=== PATIENT | male | born 1975 | race Caucasian/White ===

== ENCOUNTER 2018-02-21 13:57 | Inpatient (IN) ==
[2018-02-21 14:22] LABS: Bilirubin,Urine Negative (Negative); Blood,Urine Negative (Negative); Clarity,Urine Cloudy (Clear); Color,Urine Dark Yellow (Yellow); Glucose,Urine (UA) Normal (Normal); Ketones,Urine Trace mg/dL (Negative); Leukocyte Esterase,Urine Negative (Negative); Nitrite,Urine Negative (Negative); Protein,Urine Trace mg/dL (Neg-Trace); Specific Gravity,Urine 1.028 (1.010-1.025); Urobilinogen,Urine Normal (Normal)
[2018-02-21 14:24] LABS: Hyaline Casts,Urine None Seen per lpf (None-Few); RBC,Urine 0-3 per hpf (0-3)
[2018-02-21 14:35] LABS: Squamous Epithelial Cell,Urine Few per lpf (None-Few)
[2018-02-21 14:36] LABS: Basophils # 0.1 K/mcL (0.0-0.2); Basophils % 0.7 %; Hematocrit 45.6 % (37.5-50.1); Immature Granulocytes % 0.2 % (0-4); Lymphocytes # 2.6 K/mcL (0.6-4.6); Lymphocytes % 26.4 %; Mean Corpuscular HGB Conc 35.1 g/dL (31.6-35.5); Mean Corpuscular Hemoglobin 30.5 pg (28.0-33.3); Mean Platelet Volume 9.8 fL (9.4-12.4); Monocytes # 0.6 K/mcL (0.0-1.3); Monocytes % 5.6 %; Neutrophils # 6.7 K/mcL (1.6-8.9); Platelet Count 211 K/mcL (140-400); Red Blood Count 5.24 M/mcL (4.19-5.50); Red Cell Distribution Width 12.8 % (11.5-14.5); Segmented Neutrophils % 67.1 %
[2018-02-21 14:36] LABS: Bacteria,Urine Moderate per hpf (None-Few); WBC,Urine 0-3 per hpf (0-3)
--- NOTE | 2018-02-21 14:39 | Emergency Department Note ---
Disposition Clinical Impression: Suicidal ideation Disposition: Admitted As Inpatient Condition: Good General Adult HPI - General Chief complaint: ED Psychiatric Symptoms Stated complaint: SI,Hallucinations Time Seen by Provider: 02/21/18 14:32 Source: patient Limitations: no limitations - History of Present Illness Pain Scale: 0 - Related Data Home Medications Medication Instructions Recorded Confirmed Escitalopram [Lexapro] 10 mg PO DAILY 02/21/18 02/21/18 Naltrexone HCl 25 - 50 mg PO DAILY 02/21/18 02/21/18 Allergies Allergy/AdvReac Type Severity Reaction Status Date / Time No Known Allergies Allergy Verified 02/21/18 14:04 Past Medical History - Past Medical History Medical history: Reports: no medical history Psychiatric history: Reports: anxiety, bipolar, depression, schizophrenia, previous psychiatric hospitalization - Social History Smoking Status: Current every day smoker Smokeless Tobacco Status: No Alcohol use: Reports: none Drug use: Reports: none Physical Exam - General Limitations: no limitations General appearance: alert, in no apparent distress Course Vital Signs Temperature 97.6 F 02/21/18 14:01 Pulse Rate 119 02/21/18 14:01 Respiratory Rate 16 02/21/18 14:01 Blood Pressure 133/73 02/21/18 14:01 O2 Sat by Pulse Oximetry 99 02/21/18 14:01 Temperature 97.6 F 02/21/18 14:01 Pulse Rate 119 02/21/18 14:01 Respiratory Rate 16 02/21/18 14:01 Blood Pressure 133/73 02/21/18 14:01 O2 Sat by Pulse Oximetry 99 02/21/18 14:01 Oxygen Delivery Oxygen Delivery Room Air Medical Decision Making - Lab Data Result diagrams: 02/21/18 14:12 02/21/18 14:12 Lab Results 02/21/18 02/21/18 02/21/18 Range/Units 14:10 14:10 14:12 WBC 10.0 (4.3-11.1) K/mcL RBC 5.24 (4.19-5.50) M/mcL Hgb 16.0 (12.9-16.9) g/dL Hct 45.6 (37.5-50.1) % MCV 87.0 (83.0-100.0) fL MCH 30.5 (28.0-33.3) pg MCHC 35.1 (31.6-35.5) g/dL RDW 12.8 (11.5-14.5) % Plt Count 211 (140-400) K/mcL MPV 9.8 (9.4-12.4) fL Immature Gran % 0.2 (0-4) % Seg Neutrophils % 67.1 % Lymphocytes % 26.4 % Monocytes % 5.6 % Eosinophils % 0.0 % Basophils % 0.7 % Neutrophils # 6.7 (1.6-8.9) K/mcL Lymphocytes # 2.6 (0.6-4.6) K/mcL Monocytes # 0.6 (0.0-1.3) K/mcL Eosinophils # 0.0 (0.0-0.6) K/mcL Basophils # 0.1 (0.0-0.2) K/mcL Sodium (136-145) mEq/L Potassium (3.5-5.1) mEq/L Chloride (98-107) mEq/L Carbon Dioxide (23-29) mEq/L BUN (6-20) mg/dL Creatinine (0.70-1.30) mg/dL Est GFR ( Amer) (> 60) Est GFR (Non-Af Amer) (> 60) BUN/Creatinine Ratio (6-26) Glucose (70-105) mg/dL Calculated Osmolality (280-300) Calcium (8.6-10.3) mg/dL Urine Color Dark Yellow (Yellow) Urine Clarity Cloudy A (Clear) Urine pH 6.0 (5.0-8.0) pH Units Ur Specific [place] 1.028 H (1.010-1.025) Urine Protein Trace (Neg-Trace) mg/dL Urine Glucose (UA) Normal (Normal) mg/dL Urine Ketones Trace H (Negative) mg/dL Urine Blood Negative (Negative) Urine Nitrite Negative (Negative) Urine Bilirubin Negative (Negative) Urine Urobilinogen Normal (Normal) mg/dL Ur Leukocyte Esterase Negative (Negative) Urine Microscopic RBC 0-3 (0-3) per hpf Urine Microscopic WBC 0-3 (0-3) per hpf Ur Squamous Epith Cells Few (None-Few) per lpf Urine Bacteria Moderate H (None-Few) per hpf Hyaline Casts None Seen (None-Few) per lpf Salicylates (15.0-30.0) mg/dL Urine Opiates Screen Negative (Rpwrhf=287) ng/mL Acetaminophen (10-20) mcg/mL Ur Barbiturates Screen Negative (Cqpwvd=042) ng/mL Ur Phencyclidine Scrn Negative (Cutoff=25) ng/mL Ur Amphetamines Screen Positive H (Jyrnib=7336) ng/mL U Benzodiazepines Scrn Positive H (Nvycgq=006) ng/mL Urine Cocaine Screen Negative (Cutoff= 300) ng/mL U Marijuana (THC) Screen Negative (Cutoff = 50) ng/mL Ethyl Alcohol (Less than 10) mg/dL 02/21/18 Range/Units 14:12 WBC (4.3-11.1) K/mcL RBC (4.19-5.50) M/mcL Hgb (12.9-16.9) g/dL Hct (37.5-50.1) % MCV (83.0-100.0) fL MCH (28.0-33.3) pg MCHC (31.6-35.5) g/dL RDW (11.5-14.5) % Plt Count (140-400) K/mcL MPV (9.4-12.4) fL Immature Gran % (0-4) % Seg Neutrophils % % Lymphocytes % % Monocytes % % Eosinophils % % Basophils % % Neutrophils # (1.6-8.9) K/mcL Lymphocytes # (0.6-4.6) K/mcL Monocytes # (0.0-1.3) K/mcL Eosinophils # (0.0-0.6) K/mcL Basophils # (0.0-0.2) K/mcL Sodium 137 (136-145) mEq/L Potassium 3.6 (3.5-5.1) mEq/L Chloride 107 (98-107) mEq/L Carbon Dioxide 29 (23-29) mEq/L BUN 22 H (6-20) mg/dL Creatinine 1.13 (0.70-1.30) mg/dL Est GFR ( Amer) > 60 (> 60) Est GFR (Non-Af Amer) > 60 (> 60) BUN/Creatinine Ratio 19 (6-26) Glucose 159 H (70-105) mg/dL Calculated Osmolality 291 (280-300) Calcium 9.7 (8.6-10.3) mg/dL Urine Color (Yellow) Urine Clarity (Clear) Urine pH (5.0-8.0) pH Units Ur Specific [place] (1.010-1.025) Urine Protein (Neg-Trace) mg/dL Urine Glucose (UA) (Normal) mg/dL Urine Ketones (Negative) mg/dL Urine Blood (Negative) Urine Nitrite (Negative) Urine Bilirubin (Negative) Urine Urobilinogen (Normal) mg/dL Ur Leukocyte Esterase (Negative) Urine Microscopic RBC (0-3) per hpf Urine Microscopic WBC (0-3) per hpf Ur Squamous Epith Cells (None-Few) per lpf Urine Bacteria (None-Few) per hpf Hyaline Casts (None-Few) per lpf Salicylates < 2.5 L (15.0-30.0) mg/dL Urine Opiates Screen (Tvpptb=404) ng/mL Acetaminophen < 10 L (10-20) mcg/mL Ur Barbiturates Screen (Usgoer=493) ng/mL Ur Phencyclidine Scrn (Cutoff=25) ng/mL Ur Amphetamines Screen (Rjtcch=8080) ng/mL U Benzodiazepines Scrn (Mexhgm=296) ng/mL Urine Cocaine Screen (Cutoff= 300) ng/mL U Marijuana (THC) Screen (Cutoff = 50) ng/mL Ethyl Alcohol < 10 (Less than 10) mg/dL Attestation Statement - Attestation Attestation: I examined this patient and my medical decision-making was reviewed with the Resident Physician. I agree with the documented findings, disposition and treatment plan as described except to the extent set forth below. [id number]-[id number] time provided Patient arrives complaining of suicidal ideation. He has a history of schizophrenia and opiate abuse. He also admits to methamphetamine use. He appears in no acute distress on exam. We will attempt to clear him medically for behavioral evaluation
[2018-02-21 14:42] LABS: Amphetamine Screen,Urine Positive ng/mL (Cutoff=1000); Barbiturate Screen,Urine Negative ng/mL (Cutoff=200); Benzodiazepines Screen,Urine Positive ng/mL (Cutoff=200); Cannabinoid Screen,Urine Negative ng/mL (Cutoff = 50); Cocaine Screen,Urine Negative ng/mL (Cutoff= 300); Opiate Screen,Urine Negative ng/mL (Cutoff=300); Phencyclidine Screen,Urine Negative ng/mL (Cutoff=25)
[2018-02-21 14:55] LABS: Acetaminophen < 10 mcg/mL (10-20); BUN/Creatinine Ratio 19 (6-26); Blood Urea Nitrogen 22 mg/dL (6-20); Calcium 9.7 mg/dL (8.6-10.3); Carbon Dioxide 29 mEq/L (23-29); Chloride 107 mEq/L (98-107); Ethanol < 10 mg/dL (Less than 10); Glucose 159 mg/dL (70-105); Osmolality,Calculated 291 (280-300); Potassium 3.6 mEq/L (3.5-5.1); Salicylate < 2.5 mg/dL (15.0-30.0); Sodium 137 mEq/L (136-145); eGFR For African Americans > 60 (> 60); eGFR For Non-African Americans > 60 (> 60)
--- NOTE | 2018-02-21 15:01 | Emergency Department Note ---
Disposition Clinical Impression: Suicidal ideation Disposition: Admitted As Inpatient Condition: Good Referrals: NONE,PCP [Primary Care Provider] - Lambert Newberry [Family Provider] - Forms: ED Satisfaction Letter Time of Disposition: 16:22 General Adult HPI - General Chief complaint: ED Psychiatric Symptoms Stated complaint: SI,Hallucinations Time Seen by Provider: 02/21/18 14:32 Source: patient Mode of arrival: ambulatory Limitations: no limitations Nursing Notes Reviewed: Yes Vital Signs Reviewed: Yes - History of Present Illness HPI Narrative: 42-year-old male with known history of schizophrenia presenting to the emergency department with chief complaint of suicidal ideation. Patient states he has not been able to take his medications and has had suicidal thoughts. Denies any specific plan. Denies homicidal ideation. Does disclose visual and auditory hallucinations. According to family member at bedside he does speak to people who are not present in the room. Patient states he used to be on psychiatric medications but can no longer take them because IV drug abuse. Patient does disclose IV heroin and methamphetamine use. Patient denies any other drug or alcohol intoxication. Denies any self-harm. Patient does say he has been admitted for this previously. Last admission was less than one year ago. Pain Scale: 0 - Related Data Allergies Allergy/AdvReac Type Severity Reaction Status Date / Time No Known Allergies Allergy Verified 02/21/18 14:04 All systems ED: reviewed and negative except as stated. Psychiatric: Reports: suicidal thoughts, auditory hallucinations, visual hallucinations Past Medical History - Past Medical History Attestation: Yes The following information was validated with the patient. Medical history: Reports: no medical history Psychiatric history: Reports: anxiety, bipolar, depression, schizophrenia, previous psychiatric hospitalization - Social History Smoking Status: Current every day smoker Smokeless Tobacco Status: No Alcohol use: Reports: none Drug use: Reports: none Physical Exam - General Limitations: no limitations General appearance: alert, in no apparent distress - Head Head exam: atraumatic, normocephalic, normal inspection - Eye Eye exam: Present: normal appearance. Absent: scleral icterus, conjunctival injection - ENT ENT exam: normal exam, mucous membranes moist - Neck Neck exam: Present: normal inspection, full ROM. Absent: tenderness, meningismus - Chest Chest inspection: Present: normal inspection, symmetric chest wall rise. Absent : tenderness, rash - Respiratory Respiratory exam: Present: normal lung sounds bilaterally. Absent: respiratory distress, wheezes - Cardiovascular Cardiovascular exam: Present: normal rhythm, tachycardia, normal heart sounds - Abdominal Exam Abdominal exam: Present: soft, Non-Tender. Absent: distention, guarding, rebound - Extremities Exam Extremities exam: Present: normal inspection, full ROM - Neurological Exam Neurological exam: Present: alert, oriented X3 - Psychiatric Psychiatric exam: Present: suicidal ideation - Skin Skin exam: Present: warm, intact Course Course Narrative: 42-year-old male presenting for suicidal ideation. Patient has no medical concerns or complaints. Physical exam benign. We will obtain basic laboratory analysis and urine analysis. We will then consult our psychiatric services 1A to determine patient's further disposition. Patient is alert and oriented 3 in the room with stable vital signs. He is mildly tachycardic but otherwise within normal limits. patient agrees with this plan. - Reevaluation(s) Reevaluation #1: 1A evaluate the patient and feels he meets criteria to be admitted at this time. We will admit the patient to psychiatric services. Dr. Crain accepts the patient at this time. Patient is alert and oriented 3 and room stable vital signs. Vital Signs Temperature 97.6 F 02/21/18 14:01 Pulse Rate 119 02/21/18 14:01 Respiratory Rate 16 02/21/18 14:01 Blood Pressure 133/73 02/21/18 14:01 O2 Sat by Pulse Oximetry 99 02/21/18 14:01 Temperature 97.6 F 02/21/18 14:01 Pulse Rate 119 02/21/18 14:01 Respiratory Rate 16 02/21/18 14:01 Blood Pressure 133/73 02/21/18 14:01 O2 Sat by Pulse Oximetry 99 02/21/18 14:01 Oxygen Delivery Oxygen Delivery Room Air Medical Decision Making - Lab Data Result diagrams: 02/21/18 14:12 02/21/18 14:12 Lab Results 02/21/18 02/21/18 02/21/18 Range/Units 14:10 14:10 14:12 WBC 10.0 (4.3-11.1) K/mcL RBC 5.24 (4.19-5.50) M/mcL Hgb 16.0 (12.9-16.9) g/dL Hct 45.6 (37.5-50.1) % MCV 87.0 (83.0-100.0) fL MCH 30.5 (28.0-33.3) pg MCHC 35.1 (31.6-35.5) g/dL RDW 12.8 (11.5-14.5) % Plt Count 211 (140-400) K/mcL MPV 9.8 (9.4-12.4) fL Immature Gran % 0.2 (0-4) % Seg Neutrophils % 67.1 % Lymphocytes % 26.4 % Monocytes % 5.6 % Eosinophils % 0.0 % Basophils % 0.7 % Neutrophils # 6.7 (1.6-8.9) K/mcL Lymphocytes # 2.6 (0.6-4.6) K/mcL Monocytes # 0.6 (0.0-1.3) K/mcL Eosinophils # 0.0 (0.0-0.6) K/mcL Basophils # 0.1 (0.0-0.2) K/mcL Sodium (136-145) mEq/L Potassium (3.5-5.1) mEq/L Chloride (98-107) mEq/L Carbon Dioxide (23-29) mEq/L BUN (6-20) mg/dL Creatinine (0.70-1.30) mg/dL Est GFR ( Amer) (> 60) Est GFR (Non-Af Amer) (> 60) BUN/Creatinine Ratio (6-26) Glucose (70-105) mg/dL Calculated Osmolality (280-300) Calcium (8.6-10.3) mg/dL Urine Color Dark Yellow (Yellow) Urine Clarity Cloudy A (Clear) Urine pH 6.0 (5.0-8.0) pH Units Ur Specific [place] 1.028 H (1.010-1.025) Urine Protein Trace (Neg-Trace) mg/dL Urine Glucose (UA) Normal (Normal) mg/dL Urine Ketones Trace H (Negative) mg/dL Urine Blood Negative (Negative) Urine Nitrite Negative (Negative) Urine Bilirubin Negative (Negative) Urine Urobilinogen Normal (Normal) mg/dL Ur Leukocyte Esterase Negative (Negative) Urine Microscopic RBC 0-3 (0-3) per hpf Urine Microscopic WBC 0-3 (0-3) per hpf Ur Squamous Epith Cells Few (None-Few) per lpf Urine Bacteria Moderate H (None-Few) per hpf Hyaline Casts None Seen (None-Few) per lpf Salicylates (15.0-30.0) mg/dL Urine Opiates Screen Negative (Qzdqyv=102) ng/mL Acetaminophen (10-20) mcg/mL Ur Barbiturates Screen Negative (Cutkrv=870) ng/mL Ur Phencyclidine Scrn Negative (Cutoff=25) ng/mL Ur Amphetamines Screen Positive H (Ykokpe=7338) ng/mL U Benzodiazepines Scrn Positive H (Gdbsbp=921) ng/mL Urine Cocaine Screen Negative (Cutoff= 300) ng/mL U Marijuana (THC) Screen Negative (Cutoff = 50) ng/mL Ethyl Alcohol (Less than 10) mg/dL 02/21/18 Range/Units 14:12 WBC (4.3-11.1) K/mcL RBC (4.19-5.50) M/mcL Hgb (12.9-16.9) g/dL Hct (37.5-50.1) % MCV (83.0-100.0) fL MCH (28.0-33.3) pg MCHC (31.6-35.5) g/dL RDW (11.5-14.5) % Plt Count (140-400) K/mcL MPV (9.4-12.4) fL Immature Gran % (0-4) % Seg Neutrophils % % Lymphocytes % % Monocytes % % Eosinophils % % Basophils % % Neutrophils # (1.6-8.9) K/mcL Lymphocytes # (0.6-4.6) K/mcL Monocytes # (0.0-1.3) K/mcL Eosinophils # (0.0-0.6) K/mcL Basophils # (0.0-0.2) K/mcL Sodium 137 (136-145) mEq/L Potassium 3.6 (3.5-5.1) mEq/L Chloride 107 (98-107) mEq/L Carbon Dioxide 29 (23-29) mEq/L BUN 22 H (6-20) mg/dL Creatinine 1.13 (0.70-1.30) mg/dL Est GFR ( Amer) > 60 (> 60) Est GFR (Non-Af Amer) > 60 (> 60) BUN/Creatinine Ratio 19 (6-26) Glucose 159 H (70-105) mg/dL Calculated Osmolality 291 (280-300) Calcium 9.7 (8.6-10.3) mg/dL Urine Color (Yellow) Urine Clarity (Clear) Urine pH (5.0-8.0) pH Units Ur Specific [place] (1.010-1.025) Urine Protein (Neg-Trace) mg/dL Urine Glucose (UA) (Normal) mg/dL Urine Ketones (Negative) mg/dL Urine Blood (Negative) Urine Nitrite (Negative) Urine Bilirubin (Negative) Urine Urobilinogen (Normal) mg/dL Ur Leukocyte Esterase (Negative) Urine Microscopic RBC (0-3) per hpf Urine Microscopic WBC (0-3) per hpf Ur Squamous Epith Cells (None-Few) per lpf Urine Bacteria (None-Few) per hpf Hyaline Casts (None-Few) per lpf Salicylates < 2.5 L (15.0-30.0) mg/dL Urine Opiates Screen (Iwukjc=699) ng/mL Acetaminophen < 10 L (10-20) mcg/mL Ur Barbiturates Screen (Hipngo=340) ng/mL Ur Phencyclidine Scrn (Cutoff=25) ng/mL Ur Amphetamines Screen (Zszkti=2435) ng/mL U Benzodiazepines Scrn (Jaeqih=762) ng/mL Urine Cocaine Screen (Cutoff= 300) ng/mL U Marijuana (THC) Screen (Cutoff = 50) ng/mL Ethyl Alcohol < 10 (Less than 10) mg/dL
[2018-02-21] MEDS ORDERED: Mag Hydrox/Al Hydrox/Simeth 30 ML UDC PO PRN (16:31)
[2018-02-21] MEDS ORDERED: hydrOXYzine pamoate 25 MG CAPSULE PO PRN (16:31)
[2018-02-21] MEDS ORDERED: Ibuprofen 400 MG TABLET PO PRN (16:31)
[2018-02-21] MEDS ORDERED: *HR* LORazepam 2 MG/ML VIAL IM PRN (16:31)
[2018-02-21] MEDS ORDERED: MOM Conc 10 ML UD.LIQ PO PRN (16:31)
[2018-02-21] MEDS ORDERED: Haloperidol Lactate 5 MG/ML VIAL IM PRN (16:31)
[2018-02-21] MEDS ORDERED: *HR* LORazepam 1 MG TABLET PO ONE (16:45)
[2018-02-21] MEDS: Nicotine 21 MG PATCH.TD24 TD SCH (17:54)
[2018-02-21] MEDS: traZODone 50 MG TABLET PO PRN (21:28)
[2018-02-21] MEDS: OLANZapine 5 MG TAB.RAPDIS PO SCH (21:28)
[2018-02-22] MEDS: Nicotine 21 MG PATCH.TD24 TD SCH (08:58)
--- NOTE | 2018-02-22 09:59 | Psychiatry History & Physical ---
Date of Encounter: 02/22/18 Time of Encounter: 09:05 History of Present Illness Patient Stated Chief Complaint: "I am hearing voices." Medicare Admission Attestation: For traditional Medicare patients the provided hospital inpatient services are reasonable and necessary and in the case of services not specified as inpatient -only under 42 CFR 419.22 (n), that they are appropriately provided as inpatient services in accordance 42 CFR 412.3. For Critical Access Hospital the patient may reasonably be expected to be discharged or transferred to a hospital within 96 hours after admission to the Critical Access Hospital. Admitted From: Emergency Dept History of Present Illness: Mr. Stein is a 42 year old male with a history of schizophrenia as well as substance abuse who presented to the hospital with paranoia, depression, suicidal ideations. He states he is hearing voices of people talking but cannot make out what they are saying. Patient states he is not hearing any command hallucinations but he does feel depressed and the voices are troublesome to him. He admits to drug use but states initially that he has not used drugs in over a month. He has been hospitalized before for schizophrenia and at one point was stable on Invega, Depakote, Wellbutrin. He reports that all these meds were stopped about 6 months ago. Urine drug screen was positive for both amphetamines and benzos. Patient denies grandiosity or decreased need for sleep but does state that he has had trouble sleeping possibly secondary to the paranoia and thinking people are watching him. Today he denies suicidal ideations. He lives with his uncle. Past Med Surg Social Fam HX - Past Medical History Medical history: no medical history - Past Psychiatric History Psychiatric history: Reports: schizophrenia, previous psychiatric hospitalization, other (Substance abuse) Past psychiatric history details: Patient has a history of outpatient psychiatric treatment but he has not seen his psychiatrist in over 6 months. He has admissions to [facility] at least one time. Possible other admissions the patient is a poor historian. He denies history of suicide attempts. Family psychiatric history: Yes Family Psychiatric History Details: Patient states his father may have mental health history but is not sure. Family History of Suicide: None - Past Surgical History Surgical History: no surgical history - Social History Smoking Status: Current every day smoker Smokeless Tobacco Status: No Alcohol use: none Drug use: none Medications & Allergies Escitalopram [Lexapro] 10 mg PO DAILY 02/21/18 [History] Naltrexone HCl 25 - 50 mg PO DAILY 02/21/18 [History] 3 Allergy/AdvReac Type Severity Reaction Status Date / Time No Known Allergies Allergy Verified 02/21/18 14:04 Review of Systems ROS limited: due to patient condition (Patient is currently psychotic. Review of systems is limited secondary to his mental status.) Psychiatric: Reports: depression, anxiety, abnormal sleep pattern, auditory hallucinations, difficulty concentrating, other (Paranoia) Exam - HEENT Head exam IM: Present: atraumatic Eye exam IM: Present: EOMI, normal appearance, PERRL ENT exam IM: Present: normal exam - Neurological Neurological exam: Present: CN II-XII intact - Respiratory Respiratory exam IM: Present: CTAB - GI/Abdominal GI/Abdominal exam IM: Present: normal bowel sounds, soft. Absent: tenderness - Extremities Extremities exam IM: Present: full ROM - Skin Skin exam IM: Present: dry, warm - Constitutional Vitals: Temp Pulse Resp BP Pulse Ox 98.2 F 100 18 100/77 98 02/21/18 21:00 02/21/18 21:00 02/21/18 21:00 02/21/18 21:00 02/21/18 21:00 General appearance: unkempt, average - Musculoskeletal Gait: normal Station: relaxed Strength & Tone: normal for patient - Psychiatric Patient Orientation: Yes Person, Yes Time, Yes Place Level of alertness: Alert Behavior: cooperative, guarded Eye Contact: Fleeting Contact Mood Description: Depressed Affect description: flat Speech Volume: Soft/Quiet Speech pattern: slowed, limited Language & Vocabulary: limited Thought Process: [place], Slowed Thinking Thought Content: No Suicidal ideation, No Homicidal ideation, No Overt delusions , Yes Paranoid delusion, Yes Thought insertion Perceptual Disturbances: Yes Reacting to internal stimuli, No Visual hallucinations Attention Span Ability: Capable of Focused Attention Memory Description: Immediate Intact, Recent Impaired, Remote Impaired Patient Reliability: Not Reliable Historian Fund of knowledge: Yes below average Intelligence Estimate: Average Judgment: Poor Insight: Minimal Results - Labs Labs: Laboratory Last Values WBC 10.0 K/mcL (4.3-11.1) 02/21/18 14:12 RBC 5.24 M/mcL (4.19-5.50) 02/21/18 14:12 Hgb 16.0 g/dL (12.9-16.9) 02/21/18 14:12 Hct 45.6 % (37.5-50.1) 02/21/18 14:12 MCV 87.0 fL (83.0-100.0) 02/21/18 14:12 MCH 30.5 pg (28.0-33.3) 02/21/18 14:12 MCHC 35.1 g/dL (31.6-35.5) 02/21/18 14:12 RDW 12.8 % (11.5-14.5) 02/21/18 14:12 Plt Count 211 K/mcL (140-400) 02/21/18 14:12 MPV 9.8 fL (9.4-12.4) 02/21/18 14: Immature Gran % 0.2 % (0-4) 02/21/18 14: Seg Neutrophils % 67.1 % 02/21/18 14:12 Lymphocytes % 26.4 % 02/21/18 14: Monocytes % 5.6 % 02/21/18 14: Eosinophils % 0.0 % 02/21/18 14: Basophils % 0.7 % 02/21/18 14:12 Neutrophils # 6.7 K/mcL (1.6-8.9) 02/21/18 14:12 Lymphocytes # 2.6 K/mcL (0.6-4.6) 02/21/18 14: Monocytes # 0.6 K/mcL (0.0-1.3) 02/21/18 14: Eosinophils # 0.0 K/mcL (0.0-0.6) 02/21/18 14: Basophils # 0.1 K/mcL (0.0-0.2) 02/21/18 14:12 Sodium 137 mEq/L (136-145) 02/21/18 14:12 Potassium 3.6 mEq/L (3.5-5.1) 02/21/18 14:12 Chloride 107 mEq/L (98-107) 02/21/18 14:12 Carbon Dioxide 29 mEq/L (23-29) 02/21/18 14:12 BUN 22 mg/dL (6-20) H 02/21/18 14:12 Creatinine 1.13 mg/dL (0.70-1.30) 02/21/18 14:12 Est GFR ( Amer) > 60 (> 60) 02/21/18 14:12 Est GFR (Non-Af Amer) > 60 (> 60) 02/21/18 14:12 BUN/Creatinine Ratio 19 (6-26) 02/21/18 14:12 Glucose 159 mg/dL (70-105) H 02/21/18 14:12 Calculated Osmolality 291 (280-300) 02/21/18 14:12 Calcium 9.7 mg/dL (8.6-10.3) 02/21/18 14:12 Urine Color Dark Yellow (Yellow) 02/21/18 14:10 Urine Clarity Cloudy (Clear) A 02/21/18 14:10 Urine pH 6.0 pH Units (5.0-8.0) 02/21/18 14:10 Ur Specific [place] 1.028 (1.010-1.025) H 02/21/18 14:10 Urine Protein Trace mg/dL (Neg-Trace) 02/21/18 14:10 Urine Glucose (UA) Normal mg/dL (Normal) 02/21/18 14:10 Urine Ketones Trace mg/dL (Negative) H 02/21/18 14:10 Urine Blood Negative (Negative) 02/21/18 14:10 Urine Nitrite Negative (Negative) 02/21/18 14:10 Urine Bilirubin Negative (Negative) 02/21/18 14:10 Urine Urobilinogen Normal mg/dL (Normal) 02/21/18 14:10 Ur Leukocyte Esterase Negative (Negative) 02/21/18 14:10 Urine Microscopic RBC 0-3 per hpf (0-3) 02/21/18 14:10 Urine Microscopic WBC 0-3 per hpf (0-3) 02/21/18 14:10 Ur Squamous Epith Cells Few per lpf (None-Few) 02/21/18 14:10 Urine Bacteria Moderate per hpf (None-Few) H 02/21/18 14:10 Hyaline Casts None Seen per lpf (None-Few) 02/21/18 14:10 Salicylates < 2.5 mg/dL (15.0-30.0) L 02/21/18 14:12 Urine Opiates Screen Negative ng/mL (Vebtqi=290) 02/21/18 14:10 Acetaminophen < 10 mcg/mL (10-20) L 02/21/18 14:12 Ur Barbiturates Screen Negative ng/mL (Rlaalp=447) 02/21/18 14:10 Ur Phencyclidine Scrn Negative ng/mL (Cutoff=25) 02/21/18 14:10 Ur Amphetamines Screen Positive ng/mL (Weewiu=3349) H 02/21/18 14:10 U Benzodiazepines Scrn Positive ng/mL (Ncqbqd=268) H 02/21/18 14:10 Urine Cocaine Screen Negative ng/mL (Cutoff= 300) 02/21/18 14:10 U Marijuana (THC) Screen Negative ng/mL (Cutoff = 50) 02/21/18 14:10 Ethyl Alcohol < 10 mg/dL (Less than 10) 02/21/18 14:12 Assessment and Plan (1) Schizophrenia Current visit: Yes Status: Acute Plan: Admit inpatient for safety and stabilization, Close observation, Suicide Precautions per unit protocol, Encourage participation in unit milieu, Group Therapy, Monitor sleep, Monitor appetite Additional Plan: Patient is presently psychotic and requires psychiatric stabilization. Start Zyprexa at bedtime. Encourage appropriate ADLs and group attendance as tolerated. When necessary Haldol as needed for severe agitation. Trazodone for sleep. Risks, benefits, side effects, alternatives discussed w/pt: Yes Patient agreeable to treatment: Yes Plans for Post Hospital Care: Home Estimated Length of Stay (Days): 3 Qualifiers: Schizophrenia type: paranoid schizophrenia Qualified Code(s): F20.0 - Paranoid schizophrenia (2) Methamphetamine abuse Current visit: Yes Status: Acute Plan: Admit inpatient for safety and stabilization Additional Plan: Patient is positive for methamphetamines and admits to using drugs. This may be exacerbating his mental health issues. Monitor closely and encourage positive coping strategies. Risks, benefits, side effects, alternatives discussed w/pt: Yes Patient agreeable to treatment: Yes (3) Benzodiazepine abuse Current visit: Yes Status: Acute Plan: Admit inpatient for safety and stabilization, Close observation, Suicide Precautions per unit protocol, Encourage participation in unit milieu, Group Therapy, Monitor sleep, Monitor appetite Additional Plan: Monitor vitals. It is unclear how much of the benzos patient was taking. We will hold on starting of benzo taper and watch patient closely. We can start Valium in a low dosage and tapering down if necessary. Encouraged patient to discontinue drug use. Risks, benefits, side effects, alternatives discussed w/pt: Yes Patient agreeable to treatment: Yes
[2018-02-22] MEDS: OLANZapine 5 MG TAB.RAPDIS PO SCH (20:46)
[2018-02-22] MEDS: traZODone 50 MG TABLET PO PRN (20:48)
--- NOTE | 2018-02-23 10:02 | Psychiatry Progress Note ---
Date of Encounter: 02/23/18 Time of Encounter: 09:30 Subjective Interval history: This patient met with me. His answers were brief without elaboration. At times I would ask him questions and he would pause or not seem to know the answer. He would indicate that this was in his record. He was somewhat irritable in his presentation especially when pressed on questions and answers. The patient admitted to methamphetamine abuse and benzodiazepine abuse history of heroin use. He was placed on naltrexone in an effort to be started on vivid trauma by his history. When asked about hallucinations he said he was not having any at the time but during the interview he briefly stopped stared at the floor and appeared to be attending to internal stimuli. The patient is able to identify that he was noncompliant with his treatment that he did not go for follow-up that he is previously been involved with NA. He believes that he can return to live with his uncle and help out in his uncle' s activities. The patient used to be at [facility] in [place] there is a report of a DUI in 2017 and hospitalization in [facility] for 5 days. The patient is not expecting any visitors today Review of Systems Psychiatric: Reports: depression, anxiety, abnormal sleep pattern, suicidal ideation, auditory hallucinations, memory loss, difficulty concentrating, irritability, other (Paranoia) Results - Vital Signs Vital Signs: Temp Pulse Resp BP Pulse Ox 97.4 F L 64 16 114/66 98 02/23/18 04:00 02/23/18 04:00 02/23/18 04:00 02/23/18 04:00 02/21/18 21:00 Assessment and Plan (1) Uncomplicated opioid dependence Current visit: Yes Status: Chronic Plan: Close observation, Suicide Precautions per unit protocol Risks, benefits , side effects, alternatives discussed w/pt: Yes Patient agreeable to treatment: Yes (add naltrexone) (2) Patient's noncompliance with other medical treatment and regimen Current visit: Yes Status: Acute Plan: Group Therapy, Monitor sleep, Family/Supportive other meeting Risks, benefits, side effects, alternatives discussed w/pt: Yes Patient agreeable to treatment: Yes (Invega sustenna) (3) Benzodiazepine abuse Current visit: Yes Status: Acute Plan: Continue hospitalization, Monitor sleep, Monitor appetite Risks, benefits, side effects, alternatives discussed w/pt: Yes Patient agreeable to treatment: Yes (4) Methamphetamine abuse Current visit: Yes Status: Acute Plan: Secure weapons, Family/Supportive other meeting Risks, benefits, side effects, alternatives discussed w/pt: Yes Patient agreeable to treatment: Yes (5) Schizophrenia Current visit: Yes Status: Acute Risks, benefits, side effects, alternatives discussed w/pt: Yes Patient agreeable to treatment: Yes (Invega 3 mg qhs) Qualifiers: Schizophrenia type: paranoid schizophrenia Qualified Code(s): F20.0 - Paranoid schizophrenia (6) Suicidal ideation Current visit: Yes Status: Acute Plan: Close observation, Suicide Precautions per unit protocol Risks, benefits , side effects, alternatives discussed w/pt: Yes Patient agreeable to treatment: Yes Consult Discharge Plan - Plan Referrals: [facility] [Outside] - 02/28/18 10:30 am (The above appointment is with Kaylyn Jacobo counselor at [facility]. Your first appointment will be very thorough and the total appointment time will take between two and three hours. You will be meeting with a counselor and a nurse, and developing a treatment plan. Please arrive one hour before your scheduled appointment to complete paperwork. You will receive follow- up appointments for on-going services, which could include community support, mental health and substance abuse counseling, groups/partial hospitalization programming, medication assisted treatment, and psychiatric medication management. Please bring the following with you to your first visit to the clinic: 1) proof of household income (two consecutive pay stubs, social security award letter, bank statement, statement letter from [facility], child support statement, IRS 1040 or W2 form, or a statement from the person who financially supports you stating they help provide for your basic needs), 2) proof of residency (drivers license, a piece of mail showing your address, a statement from person you live with verifying you live at their address), 3) your social security card, 4) photo ID, and 5) your insurance card (if you have commercial insurance you must call to obtain a prior authorization number before you arrive to your first appointment). If you do not bring these items, you will not be seen.) Laura Ro [Advanced Practice Nurse] - 03/04/18 3:30 pm (The above appointment is with Laura Ro CNP, at Primary Care within [facility]. This appointment is to establish you with a primary care provider. Your needs for medication and/or Vivitrol will be assessed and treated as indicated as well. Please arrive 15 minutes early to complete paperwork. Please bring your insurance card, photo ID and list of current medications to your first appointment. The above appointment(s) reflects first availability. You may contact the office regularly to check for cancellations that may allow you to be seen sooner.) Psychiatry Exam - Constitutional Vitals: Temp Pulse Resp BP Pulse Ox 97.4 F L 64 16 114/66 98 02/23/18 04:00 02/23/18 04:00 02/23/18 04:00 02/23/18 04:00 02/21/18 21:00 General appearance: age & developmentally appropriate, unkempt - Musculoskeletal Gait: slow Station: relaxed Strength & Tone: other - Psychiatric Patient Orientation: Yes Person, Yes Time, Yes Place, Yes Circumstance Level of alertness: Alert Behavior: guarded, suspicious Psychomotor activity: Abnormal movements Eye Contact: Minimal Contact Mood Description: Irritable Affect description: dysphoric Speech Volume: No variation in volume Speech pattern: normal rate Language & Vocabulary: consistent with education Thought Process: Evasive Thought Content: Yes Suicidal ideation Perceptual Disturbances: Yes Reacting to internal stimuli Memory Description: Immediate Intact, Recent Impaired, Remote Impaired Patient Reliability: Not Reliable Historian Fund of knowledge: Yes below average Intelligence Estimate: Average Judgment: Limited Insight: Minimal (has minor chewing movements and some lingual dyskinesia with activation, no nabeel mvoements seen)
[2018-02-23] MEDS: Nicotine 21 MG PATCH.TD24 TD SCH (10:13)
[2018-02-23] MEDS: OLANZapine 5 MG TAB.RAPDIS PO SCH (21:01)
[2018-02-24] MEDS: Nicotine 21 MG PATCH.TD24 TD SCH (09:00)
--- NOTE | 2018-02-24 12:04 | Psychiatry Progress Note ---
Date of Encounter: 02/24/18 Time of Encounter: 11:30 Subjective Interval history: The patient has adjusted to the unit. When asked what he thinks about he says that he is thinking of much of anything because he does not have much to do. When asked about what he would like to do after discharge she says he needs to go to counseling maintain his sobriety and he says he needs to see his police commanding officer on March 31. He had no visitors and reports that he would like to go back to his uncle's to live. The patient tolerated 3 mg of been vague he tolerated this today after this morning's dose. The patient has been on Invega Sustenna previously. The patient was agreeable to taking naltrexone when given a choice she elected to begin 25 mg. I warned him about being off Suboxone Subutex for 14 days and heroin and opiate pain pills for 8 days before taking the naltrexone. He was agreeable to this. The patient reports no hallucinations hearing voices and believing things are not true.. He did not appear to have significant disturbance of mood and overall his affect was restricted he noted no side effects to the current regimen of medicines but he noted that Vistaril and trazodone were not helpful for sleep as difficulty falling asleep and has taken trazodone previously agreed to a higher dose trazodone. This was ordered as a scheduled medicine Review of Systems Psychiatric: Reports: depression, anxiety, abnormal sleep pattern, suicidal ideation, auditory hallucinations, memory loss, difficulty concentrating, irritability, other (Paranoia) Results - Vital Signs Vital Signs: Temp Pulse Resp BP Pulse Ox 96.8 F L 75 16 114/80 98 02/24/18 09:00 02/24/18 09:00 02/24/18 09:00 02/24/18 09:00 02/21/18 21:00 Assessment and Plan (1) Uncomplicated opioid dependence Current visit: Yes Status: Chronic Plan: Continue hospitalization, Close observation, Suicide Precautions per unit protocol, Encourage participation in unit milieu, Monitor sleep Risks, benefits, side effects, alternatives discussed w/pt: Yes Patient agreeable to treatment: Yes (add naltrexone) (2) Patient's noncompliance with other medical treatment and regimen Current visit: Yes Status: Acute Plan: Continue hospitalization, Close observation, Monitor sleep Risks, benefits, side effects, alternatives discussed w/pt: Yes Patient agreeable to treatment: Yes (Invega sustenna) (3) Benzodiazepine abuse Current visit: Yes Status: Acute Plan: Continue hospitalization, Monitor appetite Risks, benefits, side effects , alternatives discussed w/pt: Yes Patient agreeable to treatment: Yes (4) Methamphetamine abuse Current visit: Yes Status: Acute Plan: Monitor sleep, Secure weapons, Family/Supportive other meeting Risks, benefits, side effects, alternatives discussed w/pt: Yes Patient agreeable to treatment: Yes (5) Schizophrenia Current visit: Yes Status: Acute Plan: Encourage participation in unit milieu, Group Therapy, Monitor sleep Risks, benefits, side effects, alternatives discussed w/pt: Yes Patient agreeable to treatment: Yes (Invega 3 mg qhs) Qualifiers: Schizophrenia type: paranoid schizophrenia Qualified Code(s): F20.0 - Paranoid schizophrenia (6) Suicidal ideation Current visit: Yes Status: Acute Plan: Continue hospitalization, Suicide Precautions per unit protocol, Encourage participation in unit milieu, Secure weapons Risks, benefits, side effects, alternatives discussed w/pt: Yes Patient agreeable to treatment: Yes Consult Discharge Plan - Plan Referrals: [facility] [Outside] - 02/28/18 10:30 am (The above appointment is with Kaylyn Jacobo, counselor at [facility]. Your first appointment will be very thorough and the total appointment time will take between two and three hours. You will be meeting with a counselor and a nurse, and developing a treatment plan. Please arrive one hour before your scheduled appointment to complete paperwork. You will receive follow- up appointments for on-going services, which could include community support, mental health and substance abuse counseling, groups/partial hospitalization programming, medication assisted treatment, and psychiatric medication management. Please bring the following with you to your first visit to the clinic: 1) proof of household income (two consecutive pay stubs, social security award letter, bank statement, statement letter from [facility], child support statement, IRS 1040 or W2 form, or a statement from the person who financially supports you stating they help provide for your basic needs), 2) proof of residency (drivers license, a piece of mail showing your address, a statement from person you live with verifying you live at their address), 3) your social security card, 4) photo ID, and 5) your insurance card (if you have commercial insurance you must call to obtain a prior authorization number before you arrive to your first appointment). If you do not bring these items, you will not be seen.) Laura Ro [Advanced Practice Nurse] - 03/04/18 3:30 pm (The above appointment is with Laura Ro CNP, at Primary [facility] within [facility]. This appointment is to establish you with a primary care provider. Your needs for medication and/or Vivitrol will be assessed and treated as indicated as well. Please arrive 15 minutes early to complete paperwork. Please bring your insurance card, photo ID and list of current medications to your first appointment. The above appointment(s) reflects first availability. You may contact the office regularly to check for cancellations that may allow you to be seen sooner.) Psychiatry Exam - Constitutional Vitals: Temp Pulse Resp BP Pulse Ox 96.8 F L 75 16 114/80 98 02/24/18 09:00 02/24/18 09:00 02/24/18 09:00 02/24/18 09:00 02/21/18 21:00 General appearance: age & developmentally appropriate, unkempt - Musculoskeletal Gait: normal Station: other Strength & Tone: normal for patient - Psychiatric Patient Orientation: Yes Person, Yes Time, Yes Place, Yes Circumstance Level of alertness: Alert Behavior: suspicious Psychomotor activity: Slowed Eye Contact: Maintains Eye Contact Mood Description: Depressed Affect description: congruent with mood Speech Volume: Normal Speech pattern: normal rate, normal rhythm Language & Vocabulary: consistent with education Thought Process: Evasive, Slowed Thinking Thought Content: Yes Suicidal ideation Perceptual Disturbances: Yes Reacting to internal stimuli Attention Span Ability: Capable of Focused Attention Memory Description: Grossly Intact Patient Reliability: Questionable Historian Fund of knowledge: Yes average Intelligence Estimate: Average Judgment: Limited Insight: Minimal
[2018-02-24] MEDS ORDERED: NALTREXONE PO SCH (21:00)
[2018-02-24] MEDS: traZODone 50 MG TABLET PO SCH (22:15)
[2018-02-24] MEDS: OLANZapine 5 MG TAB.RAPDIS PO SCH (22:15)
[2018-02-24] MEDS ORDERED: NALTREXONE HCL 50 MG TABLET PO SCH (23:45)
[2018-02-25] MEDS: NALTREXONE HCL 50 MG TABLET PO SCH ×2 (03:53→21:09)
[2018-02-25] MEDS: Nicotine 21 MG PATCH.TD24 TD SCH (08:35)
--- NOTE | 2018-02-25 10:58 | Psychiatry Progress Note ---
Date of Encounter: 02/25/18 Time of Encounter: 10:55 Subjective Interval history: Client reports he is feeling better. Now denying symptoms of Schizophrenia including paranoia and hallucinations. Also denying SI. No evidence of psychosis or major mood disturbance. Taking low dose Invega and Zyprexa. Unclear why he is on both. Previously took Invega Sustenna with good results. Would recommend he restart this medication and eliminate the oral meds. Since he is approaching discharge readiness this can be done on an outpatient basis. Client is saying he wants to return to live with his uncle. However, family seems to be unaware of his drug use. May need to secure other placement. Suspect client will be ready to go once housing is established. Review of Systems Constitutional: Denies: fever, chills, weakness, weight change Eyes: Denies: eye pain, vision change Ears, Nose, Throat: Denies: ear pain, throat pain, dental pain, hearing loss, congestion Cardiovascular: Denies: chest pain, palpitations, dyspnea on exertion Respiratory: Denies: cough, dyspnea, wheezes Gastrointestinal: Denies: abdominal pain, nausea, vomiting, diarrhea, constipation Musculoskeletal: Denies: joint swelling, joint pain Neurological: Denies: headache, weakness, numbness, memory loss Psychiatric: Reports: depression, anxiety, abnormal sleep pattern, suicidal ideation, auditory hallucinations, memory loss, difficulty concentrating, irritability, other (Paranoia) Results - Vital Signs Vital Signs: Temp Pulse Resp BP Pulse Ox 97.3 F L 73 16 100/71 98 02/25/18 09:00 02/25/18 09:00 02/25/18 09:00 02/25/18 09:00 02/21/18 21:00 Assessment and Plan (1) Schizophrenia Current visit: Yes Status: Acute Plan: Continue hospitalization, Close observation, Suicide Precautions per unit protocol, Encourage participation in unit milieu, Group Therapy, Monitor sleep, Monitor appetite Risks, benefits, side effects, alternatives discussed w/pt: Yes Patient agreeable to treatment: Yes (Invega 3 mg qhs) Qualifiers: Schizophrenia type: paranoid schizophrenia Qualified Code(s): F20.0 - Paranoid schizophrenia (2) Methamphetamine abuse Current visit: Yes Status: Acute Plan: Continue hospitalization, Close observation, Suicide Precautions per unit protocol, Encourage participation in unit milieu, Group Therapy, Monitor sleep, Monitor appetite Risks, benefits, side effects, alternatives discussed w/pt: Yes Patient agreeable to treatment: Yes Consult Discharge Plan - Plan Referrals: [facility] [Outside] - 02/28/18 10:30 am (The above appointment is with Kaylyn Jacobo, counselor at [facility]. Your first appointment will be very thorough and the total appointment time will take between two and three hours. You will be meeting with a counselor and a nurse, and developing a treatment plan. Please arrive one hour before your scheduled appointment to complete paperwork. You will receive follow- up appointments for on-going services, which could include community support, mental health and substance abuse counseling, groups/partial hospitalization programming, medication assisted treatment, and psychiatric medication management. Please bring the following with you to your first visit to the clinic: 1) proof of household income (two consecutive pay stubs, social security award letter, bank statement, statement letter from [facility], child support statement, IRS 1040 or W2 form, or a statement from the person who financially supports you stating they help provide for your basic needs), 2) proof of residency (drivers license, a piece of mail showing your address, a statement from person you live with verifying you live at their address), 3) your social security card, 4) photo ID, and 5) your insurance card (if you have commercial insurance you must call to obtain a prior authorization number before you arrive to your first appointment). If you do not bring these items, you will not be seen.) Laura Ro [Advanced Practice Nurse] - 03/04/18 3:30 pm (The above appointment is with Laura Ro CNP, at Primary Care within [facility]. This appointment is to establish you with a primary care provider. Your needs for medication and/or Vivitrol will be assessed and treated as indicated as well. Please arrive 15 minutes early to complete paperwork. Please bring your insurance card, photo ID and list of current medications to your first appointment. The above appointment(s) reflects first availability. You may contact the office regularly to check for cancellations that may allow you to be seen sooner.) Psychiatry Exam - Constitutional Vitals: Temp Pulse Resp BP Pulse Ox 97.3 F L 73 16 100/71 98 04/09/18 09:00 02/25/18 09:00 02/25/18 09:00 02/25/18 09:00 02/21/18 21:00 General appearance: age & developmentally appropriate - Musculoskeletal Gait: normal Station: relaxed Strength & Tone: normal for patient - Psychiatric Patient Orientation: Yes Person, Yes Time, Yes Place Level of alertness: Alert Behavior: calm, cooperative Psychomotor activity: Normal Eye Contact: Maintains Eye Contact Mood Description: Euthymic/stable Affect description: blunted Speech Volume: Normal Speech pattern: normal rate, normal rhythm, normal tone, fluent, spontaneous Language & Vocabulary: consistent with education Thought Process: Linear Thought Content: No Suicidal ideation, No Homicidal ideation, No Overt delusions Perceptual Disturbances: No Auditory hallucinations, No Visual hallucinations Attention Span Ability: Capable of Focused Attention Memory Description: Grossly Intact Patient Reliability: Questionable Historian Fund of knowledge: Yes abstraction ability, Yes aware of current events Intelligence Estimate: Average Judgment: Limited Insight: Partial
[2018-02-25] MEDS: OLANZapine 5 MG TAB.RAPDIS PO SCH (21:11)
[2018-02-25] MEDS: traZODone 50 MG TABLET PO SCH (21:11)
[2018-02-26] MEDS: Nicotine 21 MG PATCH.TD24 TD SCH (08:32)
[2018-02-26 10:38] VITALS: BP 109/74
--- NOTE | 2018-02-26 16:09 | Discharge Summary ---
Date of Encounter: 02/26/18 Time of Encounter: 16:04 Diagnosis - Discharge Diagnosis (1) Suicidal ideation Status: Acute (2) Schizophrenia Status: Acute Qualifiers: Schizophrenia type: paranoid schizophrenia Qualified Code(s): F20.0 - Paranoid schizophrenia Medications - Discharge Medications Prescriptions: OLANZapine [Zyprexa Zydis] 5 mg PO HS #30 tab.rapdis Paliperidone [Invega] 3 mg PO DAILY #30 tab.er.24 Escitalopram [Lexapro] 10 mg PO DAILY 02/21/18 [History] Naltrexone HCl 25 - 50 mg PO DAILY 02/21/18 [History] OLANZapine [Zyprexa Zydis] 5 mg PO HS #30 tab.rapdis 02/26/18 [Rx] Paliperidone [Invega] 3 mg PO DAILY #30 tab.er.24 02/26/18 [Rx] traZODone [TraZODone] 100 mg PO HS tablet 02/26/18 [Rx] 3 Allergy/AdvReac Type Severity Reaction Status Date / Time No Known Allergies Allergy Verified 02/21/18 14:04 Provider Date of admission: 02/21/18 16:24 Primary care physician: PCP NONE Discharging clinician: Franco Gold Psychiatry Exam - Constitutional Vitals: Temp Pulse Resp BP Pulse Ox 97.6 F 75 18 109/74 98 02/26/18 09:00 02/26/18 09:00 02/26/18 09:00 02/26/18 09:00 02/21/18 21:00 General appearance: age & developmentally appropriate, well-groomed, well- nourished - Musculoskeletal Gait: normal Station: relaxed Strength & Tone: normal for patient - Psychiatric Patient Orientation: Yes Person, Yes Time, Yes Place Level of alertness: Alert Behavior: calm, cooperative Psychomotor activity: Normal Eye Contact: Maintains Eye Contact Mood Description: Euthymic/stable Affect description: congruent with mood, full range Speech Volume: Normal Speech pattern: normal rate, normal rhythm, normal tone, fluent, spontaneous Language & Vocabulary: consistent with education Thought Process: Linear, Goal Oriented Thought Content: No Suicidal ideation, No Homicidal ideation, No Overt delusions Perceptual Disturbances: No Auditory hallucinations, No Visual hallucinations Attention Span Ability: Capable of Focused Attention Memory Description: Grossly Intact Patient Reliability: Reliable Historian Fund of knowledge: Yes abstraction ability, Yes aware of current events Intelligence Estimate: Average Judgment: Limited Insight: Partial Hospital Course Hospital course: Mr. Stein is a 42 year old male admitted for hallucination and suicidal ideation, his UDS was positive for methamphetamine. For details of the admission please see H&P On the unit's patient was treated with Invega and Zyprexa in addition to when necessary medication. He reported improved sleep and denied hallucinations suicidal ideation. On discharge he was medically stable discharge plans were completed patient is discharged in stable condition. - Time Spent with Patient Total time spent providing and/or coordinating discharge services: Less than 30 minutes Assessment and Plan - Patient/Caregiver Discharge Instructions Activity: resume usual activities as tolerated Diet: regular diet - Follow up Plan Follow up with: [facility] [Outside] - 02/28/18 10:00 am (The above appointment is with Kaylyn Jacobo, counselor at [facility]. [facility] will take you to and from this appointment. Your first appointment will be very thorough and the total appointment time will take between two and three hours. You will be meeting with a counselor and a nurse, and developing a treatment plan. You will receive follow- up appointments for on-going services, which could include community support, mental health and substance abuse counseling, groups/partial hospitalization programming, medication assisted treatment, and psychiatric medication management. Please bring the following with you to your first visit to the clinic: 1) proof of household income (two consecutive pay stubs, social security award letter, bank statement, statement letter from [facility], child support statement, IRS 1040 or W2 form, or a statement from the person who financially supports you stating they help provide for your basic needs), 2) proof of residency (drivers license, a piece of mail showing your address, a statement from person you live with verifying you live at their address), 3) your social security card, 4) photo ID, and 5) your insurance card (if you have commercial insurance you must call to obtain a prior authorization number before you arrive to your first appointment). If you do not bring these items, you will not be seen.) [facility] [Outside] - 02/28/18 2:30 pm (The above appointment is with Manuelito Kramer for Vivitrol, primary health care and medication management services. [facility] will take you to and from this appointment. ) Functional capacity at discharge: independent ambulation Overall status at discharge: Stable Disposition: Home, Self-Care Quality - Multiple Antipsychotics Patient discharged on 2 or more antipsychotic medications: No Procedures - Procedures Procedures: Medication Management, Crisis Stabilization, Supportive Therapy, Group Therapy, Psychoeducational Therapy
== END 2018-02-26 17:50 | disposition home or self-care (01) | DRG 750 ==
LOC: EMEROO 13:57 → 1ANU 16:24 → SUATTDRO 16:24 → 1ANU 16:58
PROVIDERS: ADMIT Student in an Organized Health Care Education/Training Program; ATTEND Psychiatry & Neurology Psychiatry

== ENCOUNTER 2018-05-20 11:24 | Inpatient (IN) ==
--- NOTE | 2018-05-20 11:53 | Emergency Department Note ---
Disposition Clinical Impression: Suicidal ideation, Medical clearance for psychiatric admission Disposition: Admitted As Inpatient Condition: Undetermined Referrals: NONE,PCP [Primary Care Provider] - Lambert Newberry [Family Provider] - Forms: ED Satisfaction Letter Time of Disposition: 15:06 Psych HPI - General Chief Complaint: ED Psychiatric Symptoms Stated Complaint: SI Time Seen by Provider: 05/20/18 11:37 Source: patient Mode of arrival: ambulatory Limitations: no limitations Nursing Notes Reviewed: Yes Vital Signs Reviewed: Yes - History of Present Illness HPI Narrative: 42-year-old male with history of psychiatric disorders, previous admissions, previous SI, history of IVDU, Monica the emergency department complaining of suicidal ideation. The patient states that he recently relapsed on IV drugs roughly 2 days ago and he is very depressed about it. The patient states that one day ago he was standing [place] the [place] [address] stating that he was going to jump off and kill himself. The patient states that at that time he decided that he wanted to come in for psychiatric evaluation today. Patient denies any drug use or alcohol use today. He denies any other medical problems other than the psychiatric disorders. He denies any auditory or visual hallucinations or homicidal ideations. - Related Data Home Medications Medication Instructions Recorded Confirmed Escitalopram [Lexapro] 10 mg PO DAILY 02/21/18 02/21/18 Naltrexone HCl 25 - 50 mg PO DAILY 02/21/18 02/21/18 Previous Rx's Medication Instructions Recorded OLANZapine [Zyprexa Zydis] 5 mg PO HS #30 tab.rapdis 02/26/18 Paliperidone [Invega] 3 mg PO DAILY #30 tab.er.24 02/26/18 traZODone [TraZODone] 100 mg PO HS tablet 02/26/18 Allergies Allergy/AdvReac Type Severity Reaction Status Date / Time No Known Allergies Allergy Verified 05/20/18 11:46 All systems ED: reviewed and negative except as stated. Constitutional: Denies: fever, chills, weakness ENT ED: Denies: congestion Cardiovascular: Denies: chest pain Respiratory: Denies: dyspnea Gastrointestinal: Denies: abdominal pain Musculoskeletal: Denies: back pain Integumentary: Denies: rash Neurological: Denies: headache Psychiatric: Reports: anxiety, depression, suicidal thoughts. Denies: homicidal thoughts, auditory hallucinations, visual hallucinations Past Medical History - Past Medical History Attestation: Yes The following information was validated with the patient. Source: patient Medical history: Reports: no medical history Surgical history: Reports: no surgical history Psychiatric history: Reports: schizophrenia, previous psychiatric hospitalization, other (Substance abuse) - Social History Smoking Status: Current every day smoker Smokeless Tobacco Status: No Alcohol use: Reports: none Drug use: Reports: IV Drug Use Physical Exam - General Limitations: no limitations General appearance: alert, in no apparent distress - Head Head exam: atraumatic, normocephalic, normal inspection - Eye Eye exam: Present: normal appearance, PERRL, EOMI - ENT ENT exam: normal exam, normal oropharynx, mucous membranes moist - Neck Neck exam: Present: normal inspection, full ROM, trachea midline - Chest Chest inspection: Present: normal inspection, symmetric chest wall rise - Respiratory Respiratory exam: Absent: respiratory distress - Cardiovascular Cardiovascular exam: Present: regular rate - Extremities Exam Extremities exam: Present: normal inspection, full ROM. Absent: tenderness, pedal edema - Neurological Exam Neurological exam: Present: alert, oriented X3 - Psychiatric Psychiatric exam: Present: depressed, suicidal ideation. Absent: agitated, anxious, flat affect, manic, homicidal ideation - Skin Skin exam: Present: warm, dry, intact, normal color Course - Consultations Consultation #1: 1A called and notified. Time: 13:45 Vital Signs Temperature 98.0 F 05/20/18 11:26 Pulse Rate 85 05/20/18 11:26 Respiratory Rate 18 05/20/18 11:26 Blood Pressure 107/75 05/20/18 11:26 O2 Sat by Pulse Oximetry 97 05/20/18 11:26 Temperature 98.0 F 05/20/18 11:58 Pulse Rate 85 05/20/18 11:58 Respiratory Rate 18 05/20/18 11:58 Blood Pressure 107/75 05/20/18 11:58 O2 Sat by Pulse Oximetry 97 05/20/18 11:58 Oxygen Delivery Oxygen Delivery Room Air Psych - MDM Narrative Medical decision making narrative: Patient's workup in the emergency department consistent with suicidal ideation. The patient will be accepted to [address] Rudd. - Lab Data Result diagrams: 05/20/18 12:39 05/20/18 12:39 Lab Results 05/20/18 05/20/18 05/20/18 Range/Units 10:45 11:56 12:39 WBC 9.3 (4.3-11.1) K/mcL RBC 4.87 (4.19-5.50) M/mcL Hgb 15.6 (12.9-16.9) g/dL Hct 43.6 (37.5-50.1) % MCV 89.5 (83.0-100.0) fL MCH 32.0 (28.0-33.3) pg MCHC 35.8 H (31.6-35.5) g/dL RDW 12.5 (11.5-14.5) % Plt Count 180 (140-400) K/mcL MPV 9.4 (9.4-12.4) fL Immature Gran % 0.1 (0-4) % Seg Neutrophils % 62.5 % Lymphocytes % 28.3 % Monocytes % 8.5 % Eosinophils % 0.0 % Basophils % 0.6 % Neutrophils # 5.8 (1.6-8.9) K/mcL Lymphocytes # 2.6 (0.6-4.6) K/mcL Monocytes # 0.8 (0.0-1.3) K/mcL Eosinophils # 0.0 (0.0-0.6) K/mcL Basophils # 0.1 (0.0-0.2) K/mcL Sodium (136-145) mEq/L Potassium (3.5-5.1) mEq/L Chloride (98-107) mEq/L Carbon Dioxide (23-29) mEq/L BUN (6-20) mg/dL Creatinine (0.70-1.30) mg/dL Est GFR ( Amer) (> 60) Est GFR (Non-Af Amer) (> 60) BUN/Creatinine Ratio (6-26) Glucose (70-105) mg/dL Calculated Osmolality (280-300) Calcium (8.6-10.3) mg/dL Ur Specimen Adequacy See below A Urine Color Dark Yellow (Yellow) Urine Clarity Clear (Clear) Urine pH 5.5 (5.0-8.0) pH Units Ur Specific [place] 1.030 H (1.010-1.025) Urine Protein 30 H (Neg-Trace) mg/dL Urine Glucose (UA) Normal (Normal) mg/dL Urine Ketones Negative (Negative) mg/dL Urine Blood Negative (Negative) Urine Nitrite Negative (Negative) Urine Bilirubin Negative (Negative) Urine Urobilinogen Normal (Normal) mg/dL Ur Leukocyte Esterase Negative (Negative) Urine Microscopic RBC 5-15 H (0-3) per hpf Urine Microscopic WBC 0-3 (0-3) per hpf Ur Squamous Epith Cells Moderate H (None-Few) per lpf Urine Bacteria None Seen (None-Few) per hpf Hyaline Casts None Seen (None-Few) per lpf Salicylates (15.0-30.0) mg/dL Urine Opiates Screen Positive H (Pbxngf=021) ng/mL Acetaminophen (10-20) mcg/mL Ur Barbiturates Screen Negative (Stjfch=123) ng/mL Ur Phencyclidine Scrn Negative (Cutoff=25) ng/mL Ur Amphetamines Screen Negative (Qumkpy=5204) ng/mL U Benzodiazepines Scrn Negative (Mgevmg=454) ng/mL Urine Cocaine Screen Positive H (Cutoff= 300) ng/mL U Marijuana (THC) Screen Negative (Cutoff = 50) ng/mL Ur Drug Screen Interp See Below Ethyl Alcohol (Less than 10) mg/dL 05/20/18 Range/Units 12:39 WBC (4.3-11.1) K/mcL RBC (4.19-5.50) M/mcL Hgb (12.9-16.9) g/dL Hct (37.5-50.1) % MCV (83.0-100.0) fL MCH (28.0-33.3) pg MCHC (31.6-35.5) g/dL RDW (11.5-14.5) % Plt Count (140-400) K/mcL MPV (9.4-12.4) fL Immature Gran % (0-4) % Seg Neutrophils % % Lymphocytes % % Monocytes % % Eosinophils % % Basophils % % Neutrophils # (1.6-8.9) K/mcL Lymphocytes # (0.6-4.6) K/mcL Monocytes # (0.0-1.3) K/mcL Eosinophils # (0.0-0.6) K/mcL Basophils # (0.0-0.2) K/mcL Sodium 139 (136-145) mEq/L Potassium 3.6 (3.5-5.1) mEq/L Chloride 106 (98-107) mEq/L Carbon Dioxide 29 (23-29) mEq/L BUN 12 (6-20) mg/dL Creatinine 1.02 (0.70-1.30) mg/dL Est GFR ( Amer) > 60 (> 60) Est GFR (Non-Af Amer) > 60 (> 60) BUN/Creatinine Ratio 12 (6-26) Glucose 83 (70-105) mg/dL Calculated Osmolality 287 (280-300) Calcium 9.3 (8.6-10.3) mg/dL Ur Specimen Adequacy Urine Color (Yellow) Urine Clarity (Clear) Urine pH (5.0-8.0) pH Units Ur Specific [place] (1.010-1.025) Urine Protein (Neg-Trace) mg/dL Urine Glucose (UA) (Normal) mg/dL Urine Ketones (Negative) mg/dL Urine Blood (Negative) Urine Nitrite (Negative) Urine Bilirubin (Negative) Urine Urobilinogen (Normal) mg/dL Ur Leukocyte Esterase (Negative) Urine Microscopic RBC (0-3) per hpf Urine Microscopic WBC (0-3) per hpf Ur Squamous Epith Cells (None-Few) per lpf Urine Bacteria (None-Few) per hpf Hyaline Casts (None-Few) per lpf Salicylates < 2.5 L (15.0-30.0) mg/dL Urine Opiates Screen (Lyqgrt=628) ng/mL Acetaminophen < 10 L (10-20) mcg/mL Ur Barbiturates Screen (Fozqbq=074) ng/mL Ur Phencyclidine Scrn (Cutoff=25) ng/mL Ur Amphetamines Screen (Raebiu=3306) ng/mL U Benzodiazepines Scrn (Mwkbpi=287) ng/mL Urine Cocaine Screen (Cutoff= 300) ng/mL U Marijuana (THC) Screen (Cutoff = 50) ng/mL Ur Drug Screen Interp Ethyl Alcohol < 10 (Less than 10) mg/dL Psychiatric Medical Clearance - Medical Clearance Checklist Medical History: No Social History Section defined Current Vitals: Last Vital Signs Temp 98.0 F 05/20/18 11:58 Pulse 85 05/20/18 11:58 Resp 18 05/20/18 11:58 BP 107/75 05/20/18 11:58 Pulse Ox 97 05/20/18 11:58 Psychiatric Lab Panel: Drug Levels and Toxicity 05/20/18 05/20/18 11:56 12:39 Urine Opiates Screen Positive H Acetaminophen < 10 L Ur Barbiturates Screen Negative Ur Phencyclidine Scrn Negative Ur Amphetamines Screen Negative U Benzodiazepines Scrn Negative Urine Cocaine Screen Positive H U Marijuana (THC) Screen Negative Ethyl Alcohol < 10 Abnormal Labs: Abnormal lab results MCHC 35.8 g/dL (31.6-35.5) H 05/20/18 12:39 Ur Specimen Adequacy See below A 05/20/18 10:45 Ur Specific [place] 1.030 (1.010-1.025) H 05/20/18 10:45 Urine Protein 30 mg/dL (Neg-Trace) H 05/20/18 10:45 Urine Microscopic RBC 5-15 per hpf (0-3) H 05/20/18 10:45 Ur Squamous Epith Cells Moderate per lpf (None-Few) H 05/20/18 10:45 Salicylates < 2.5 mg/dL (15.0-30.0) L 05/20/18 12:39 Urine Opiates Screen Positive ng/mL (Gabvqa=046) H 05/20/18 11:56 Acetaminophen < 10 mcg/mL (10-20) L 05/20/18 12:39 Urine Cocaine Screen Positive ng/mL (Cutoff= 300) H 05/20/18 11:56 Statement of Medical Clearance: I have evaluated the patient, reviewed diagnostic information, and certify that the patient's medical condition is sufficiently stable that transfer to the psychiatric unit does not pose a significant risk of deterioration.
[2018-05-20 12:09] LABS: Bilirubin,Urine Negative (Negative); Blood,Urine Negative (Negative); Clarity,Urine Clear (Clear); Color,Urine Dark Yellow (Yellow); Glucose,Urine (UA) Normal (Normal); Ketones,Urine Negative (Negative); Leukocyte Esterase,Urine Negative (Negative); Nitrite,Urine Negative (Negative); PH,Urine 5.5 pH Units (5.0-8.0); Protein,Urine 30 mg/dL (Neg-Trace); Urobilinogen,Urine Normal (Normal)
[2018-05-20 12:12] LABS: Bacteria,Urine None Seen per hpf (None-Few); Hyaline Casts,Urine None Seen per lpf (None-Few); Squamous Epithelial Cell,Urine Moderate per lpf (None-Few); WBC,Urine 0-3 per hpf (0-3)
[2018-05-20 12:48] LABS: Basophils # 0.1 K/mcL (0.0-0.2); Basophils % 0.6 %; Hematocrit 43.6 % (37.5-50.1); Hemoglobin 15.6 g/dL (12.9-16.9); Immature Granulocytes % 0.1 % (0-4); Lymphocytes # 2.6 K/mcL (0.6-4.6); Lymphocytes % 28.3 %; Mean Corpuscular HGB Conc 35.8 g/dL (31.6-35.5); Mean Corpuscular Volume 89.5 fL (83.0-100.0); Mean Platelet Volume 9.4 fL (9.4-12.4); Monocytes # 0.8 K/mcL (0.0-1.3); Monocytes % 8.5 %; Neutrophils # 5.8 K/mcL (1.6-8.9); Platelet Count 180 K/mcL (140-400); Red Blood Count 4.87 M/mcL (4.19-5.50); Red Cell Distribution Width 12.5 % (11.5-14.5); Segmented Neutrophils % 62.5 %
[2018-05-20 13:08] LABS: Acetaminophen < 10 mcg/mL (10-20); BUN/Creatinine Ratio 12 (6-26); Blood Urea Nitrogen 12 mg/dL (6-20); Calcium 9.3 mg/dL (8.6-10.3); Carbon Dioxide 29 mEq/L (23-29); Chloride 106 mEq/L (98-107); Ethanol < 10 mg/dL (Less than 10); Glucose 83 mg/dL (70-105); Osmolality,Calculated 287 (280-300); Potassium 3.6 mEq/L (3.5-5.1); Salicylate < 2.5 mg/dL (15.0-30.0); Sodium 139 mEq/L (136-145); eGFR For African Americans > 60 (> 60); eGFR For Non-African Americans > 60 (> 60)
--- NOTE | 2018-05-20 13:19 | Emergency Department Note ---
Disposition Clinical Impression: Suicidal ideation Disposition: Still a Patient Forms: ED Satisfaction Letter General Adult HPI - General Chief complaint: ED Psychiatric Symptoms Stated complaint: SI Time Seen by Provider: 05/20/18 11:37 Source: patient Mode of arrival: ambulatory Limitations: no limitations - History of Present Illness Pain Scale: 0 - Related Data Home Medications Medication Instructions Recorded Confirmed Escitalopram [Lexapro] 10 mg PO DAILY 02/21/18 02/21/18 Naltrexone HCl 25 - 50 mg PO DAILY 02/21/18 02/21/18 Previous Rx's Medication Instructions Recorded OLANZapine [Zyprexa Zydis] 5 mg PO HS #30 tab.rapdis 02/26/18 Paliperidone [Invega] 3 mg PO DAILY #30 tab.er.24 02/26/18 traZODone [TraZODone] 100 mg PO HS tablet 02/26/18 Allergies Allergy/AdvReac Type Severity Reaction Status Date / Time No Known Allergies Allergy Verified 05/20/18 11:46 Constitutional: Denies: fever, chills, weakness ENT ED: Denies: congestion Cardiovascular: Denies: chest pain Respiratory: Denies: dyspnea Gastrointestinal: Denies: abdominal pain Musculoskeletal: Denies: back pain Integumentary: Denies: rash Neurological: Denies: headache Psychiatric: Reports: anxiety, depression, suicidal thoughts. Denies: homicidal thoughts, auditory hallucinations, visual hallucinations Past Medical History - Past Medical History Medical history: Reports: no medical history Surgical history: Reports: no surgical history Psychiatric history: Reports: anxiety, bipolar, depression, schizophrenia, previous psychiatric hospitalization, other - Social History Smoking Status: Current every day smoker Smokeless Tobacco Status: No Alcohol use: Reports: occasionally Drug use: Reports: opiates, IV Drug Use Physical Exam - General Limitations: no limitations General appearance: alert, in no apparent distress Course Vital Signs Temperature 98.0 F 05/20/18 11:26 Pulse Rate 85 05/20/18 11:26 Respiratory Rate 18 05/20/18 11:26 Blood Pressure 107/75 05/20/18 11:26 O2 Sat by Pulse Oximetry 97 05/20/18 11:26 Temperature 98.0 F 05/20/18 11:58 Pulse Rate 85 05/20/18 11:58 Respiratory Rate 18 05/20/18 11:58 Blood Pressure 107/75 07/02/18 11:58 O2 Sat by Pulse Oximetry 97 05/20/18 11:58 Oxygen Delivery Oxygen Delivery Room Air Medical Decision Making - Lab Data Result diagrams: 05/20/18 12:39 05/20/18 12:39 Lab Results 05/20/18 05/20/18 05/20/18 Range/Units 10:45 11:56 12:39 WBC 9.3 (4.3-11.1) K/mcL RBC 4.87 (4.19-5.50) M/mcL Hgb 15.6 (12.9-16.9) g/dL Hct 43.6 (37.5-50.1) % MCV 89.5 (83.0-100.0) fL MCH 32.0 (28.0-33.3) pg MCHC 35.8 H (31.6-35.5) g/dL RDW 12.5 (11.5-14.5) % Plt Count 180 (140-400) K/mcL MPV 9.4 (9.4-12.4) fL Immature Gran % 0.1 (0-4) % Seg Neutrophils % 62.5 % Lymphocytes % 28.3 % Monocytes % 8.5 % Eosinophils % 0.0 % Basophils % 0.6 % Neutrophils # 5.8 (1.6-8.9) K/mcL Lymphocytes # 2.6 (0.6-4.6) K/mcL Monocytes # 0.8 (0.0-1.3) K/mcL Eosinophils # 0.0 (0.0-0.6) K/mcL Basophils # 0.1 (0.0-0.2) K/mcL Sodium (136-145) mEq/L Potassium (3.5-5.1) mEq/L Chloride (98-107) mEq/L Carbon Dioxide (23-29) mEq/L BUN (6-20) mg/dL Creatinine (0.70-1.30) mg/dL Est GFR ( Amer) (> 60) Est GFR (Non-Af Amer) (> 60) BUN/Creatinine Ratio (6-26) Glucose (70-105) mg/dL Calculated Osmolality (280-300) Calcium (8.6-10.3) mg/dL Ur Specimen Adequacy See below A Urine Color Dark Yellow (Yellow) Urine Clarity Clear (Clear) Urine pH 5.5 (5.0-8.0) pH Units Ur Specific [place] 1.030 H (1.010-1.025) Urine Protein 30 H (Neg-Trace) mg/dL Urine Glucose (UA) Normal (Normal) mg/dL Urine Ketones Negative (Negative) mg/dL Urine Blood Negative (Negative) Urine Nitrite Negative (Negative) Urine Bilirubin Negative (Negative) Urine Urobilinogen Normal (Normal) mg/dL Ur Leukocyte Esterase Negative (Negative) Urine Microscopic RBC 5-15 H (0-3) per hpf Urine Microscopic WBC 0-3 (0-3) per hpf Ur Squamous Epith Cells Moderate H (None-Few) per lpf Urine Bacteria None Seen (None-Few) per hpf Hyaline Casts None Seen (None-Few) per lpf Salicylates (15.0-30.0) mg/dL Acetaminophen (10-20) mcg/mL Ur Drug Screen Interp See Below Ethyl Alcohol (Less than 10) mg/dL 05/20/18 Range/Units 12:39 WBC (4.3-11.1) K/mcL RBC (4.19-5.50) M/mcL Hgb (12.9-16.9) g/dL Hct (37.5-50.1) % MCV (83.0-100.0) fL MCH (28.0-33.3) pg MCHC (31.6-35.5) g/dL RDW (11.5-14.5) % Plt Count (140-400) K/mcL MPV (9.4-12.4) fL Immature Gran % (0-4) % Seg Neutrophils % % Lymphocytes % % Monocytes % % Eosinophils % % Basophils % % Neutrophils # (1.6-8.9) K/mcL Lymphocytes # (0.6-4.6) K/mcL Monocytes # (0.0-1.3) K/mcL Eosinophils # (0.0-0.6) K/mcL Basophils # (0.0-0.2) K/mcL Sodium 139 (136-145) mEq/L Potassium 3.6 (3.5-5.1) mEq/L Chloride 106 (98-107) mEq/L Carbon Dioxide 29 (23-29) mEq/L BUN 12 (6-20) mg/dL Creatinine 1.02 (0.70-1.30) mg/dL Est GFR ( Amer) > 60 (> 60) Est GFR (Non-Af Amer) > 60 (> 60) BUN/Creatinine Ratio 12 (6-26) Glucose 83 (70-105) mg/dL Calculated Osmolality 287 (280-300) Calcium 9.3 (8.6-10.3) mg/dL Ur Specimen Adequacy Urine Color (Yellow) Urine Clarity (Clear) Urine pH (5.0-8.0) pH Units Ur Specific [place] (1.010-1.025) Urine Protein (Neg-Trace) mg/dL Urine Glucose (UA) (Normal) mg/dL Urine Ketones (Negative) mg/dL Urine Blood (Negative) Urine Nitrite (Negative) Urine Bilirubin (Negative) Urine Urobilinogen (Normal) mg/dL Ur Leukocyte Esterase (Negative) Urine Microscopic RBC (0-3) per hpf Urine Microscopic WBC (0-3) per hpf Ur Squamous Epith Cells (None-Few) per lpf Urine Bacteria (None-Few) per hpf Hyaline Casts (None-Few) per lpf Salicylates < 2.5 L (15.0-30.0) mg/dL Acetaminophen < 10 L (10-20) mcg/mL Ur Drug Screen Interp Ethyl Alcohol < 10 (Less than 10) mg/dL Attestation Statement - Attestation Attestation: I examined this patient and my medical decision-making was reviewed with the Resident Physician. I agree with the documented findings, disposition and treatment plan as described except to the extent set forth below. 42-year-old male presents emergency room for suicidal ideation. Patient states he wants to jump off a bridge and kill himself. He stood on the bridge on Sunday and thought about doing a but never did and was having thoughts of returning to the bridge today. He came to the ER for evaluation. He denies homicidal thoughts. We will do a psychiatric clearance and consult with our psychiatry team. I feel the patient needs to be admitted
[2018-05-20 13:41] LABS: Amphetamine Screen,Urine Negative ng/mL (Cutoff=1000); Barbiturate Screen,Urine Negative ng/mL (Cutoff=200); Benzodiazepines Screen,Urine Negative ng/mL (Cutoff=200); Cannabinoid Screen,Urine Negative ng/mL (Cutoff = 50); Cocaine Screen,Urine Positive ng/mL (Cutoff= 300); Opiate Screen,Urine Positive ng/mL (Cutoff=300); Phencyclidine Screen,Urine Negative ng/mL (Cutoff=25)
[2018-05-20] MEDS ORDERED: Ibuprofen 400 MG TABLET PO PRN (15:47)
[2018-05-20] MEDS ORDERED: *HR* LORazepam 1 MG TABLET PO PRN (15:47)
[2018-05-20] MEDS ORDERED: Haloperidol Lactate 5 MG/ML VIAL IM PRN (15:47)
[2018-05-20] MEDS ORDERED: *HR* LORazepam 2 MG/ML VIAL IM PRN (15:47)
[2018-05-20] MEDS ORDERED: hydrOXYzine pamoate 25 MG CAPSULE PO PRN (15:47)
[2018-05-20] MEDS ORDERED: MOM Conc 10 ML UD.LIQ PO PRN (15:47)
[2018-05-20] MEDS ORDERED: traZODone 50 MG TABLET PO PRN (15:47)
[2018-05-20] MEDS ORDERED: Mag Hydrox/Al Hydrox/Simeth 30 ML UDC PO PRN (15:47)
[2018-05-20] MEDS: Nicotine 14 MG PATCH.TD24 TD SCH (16:36)
[2018-05-20] MEDS: OLANZapine 5 MG TAB.RAPDIS PO SCH (20:37)
[2018-05-20] MEDS: traZODone 50 MG TABLET PO SCH (20:37)
[2018-05-21] MEDS: Nicotine 14 MG PATCH.TD24 TD SCH (08:28)
--- NOTE | 2018-05-21 14:03 | Psychiatry History & Physical ---
Date of Encounter: 05/21/18 Time of Encounter: 13:30 History of Present Illness Patient Stated Chief Complaint: I relapsed, i had sucidal ideation Medicare Admission Attestation: For traditional Medicare patients the provided hospital inpatient services are reasonable and necessary and in the case of services not specified as inpatient -only under 42 CFR 419.22 (n), that they are appropriately provided as inpatient services in accordance 42 CFR 412.3. For Critical Access Hospital the patient may reasonably be expected to be discharged or transferred to a hospital within 96 hours after admission to the Critical Access Hospital. Admitted From: Home Plans for Post Hospital Care: Transfer [facility] History of Present Illness: Mr. Stein is a 42 year old male The patient had a chief complaint of low mood and suicidal ideation. He resented to the emergency room History of present illness. The patient was previously hospitalized in previously seen by [facility]. The patient has both schizophrenia and substance abuse disorder. The patient had been on vivid trauma but get in his injections every month but nonetheless he was started drinking he relapsed to use cocaine he used opiates. These turned up in his urine. The patient had suicidal ideation he thought about killing himself he has no plans to kill himself in. 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 He says he has been working. The patient is under probation he has 300 days hanging over her head for violations of the terms of his probation. Past Med Surg Social Fam HX - Past Medical History Medical history: no medical history - Past Psychiatric History Psychiatric history: Reports: previous psychiatric hospitalization Family psychiatric history: Unknown Family History of Suicide: Unknown - Past Surgical History Surgical History: no surgical history - Social History Smoking Status: Current every day smoker Smokeless Tobacco Status: No Alcohol use: none Drug use: opiates, IV Drug Use Occupational status: previously employed Activity Level: Independent ambulation Recent Out of Country Travel Within the Last 8 Weeks: No Exposure or Possible Exposure to Illness During Travel: No Medications & Allergies OLANZapine [Zyprexa Zydis] 5 mg PO HS #30 tab.rapdis 02/26/18 [Rx] Paliperidone [Invega] 3 mg PO DAILY #30 tab.er.24 02/26/18 [Rx] traZODone [TraZODone] 100 mg PO HS tablet 02/26/18 [Rx] Venlafaxine [Effexor] 75 mg PO DAILY 07/02/18 [History] 3 Allergy/AdvReac Type Severity Reaction Status Date / Time No Known Allergies Allergy Verified 05/20/18 11:46 Review of Systems Psychiatric: Reports: suicidal ideation, auditory hallucinations Exam - HEENT Head exam IM: Present: atraumatic Eye exam IM: Present: EOMI, normal appearance, PERRL ENT exam IM: Present: normal exam - Neurological Neurological exam: Present: CN II-XII intact - Respiratory Respiratory exam IM: Present: CTAB - GI/Abdominal GI/Abdominal exam IM: Present: normal bowel sounds, soft. Absent: tenderness - Extremities Extremities exam IM: Present: full ROM - Skin Skin exam IM: Present: dry, warm - Constitutional Vitals: Temp Pulse Resp BP Pulse Ox 97.2 F L 55 20 114/83 99 05/21/18 09:00 05/21/18 09:00 05/21/18 09:00 05/21/18 09:00 05/20/18 20:05 General appearance: age & developmentally appropriate, well-groomed, well- nourished - Musculoskeletal Gait: normal Station: relaxed Strength & Tone: normal for patient - Psychiatric Patient Orientation: Yes Person, Yes Time, Yes Place Level of alertness: Alert Behavior: calm, cooperative Psychomotor activity: Slowed Mood Description: Depressed Affect description: congruent with mood, full range Speech Volume: Normal Speech pattern: normal rate, normal rhythm, normal tone, fluent, spontaneous Language & Vocabulary: consistent with education Thought Process: Linear Thought Content: Yes Suicidal ideation, No Homicidal ideation, No Overt delusions, Yes Poverty of Content Perceptual Disturbances: No Visual hallucinations Attention Span Ability: Unable to Sustain Attention Memory Description: Grossly Intact Fund of knowledge: Yes abstraction ability, Yes average, Yes aware of current events Intelligence Estimate: Average Judgment: Limited Insight: Minimal Results - Labs Labs: Laboratory Last Values WBC 9.3 K/mcL (4.3-11.1) 05/20/18 12:39 RBC 4.87 M/mcL (4.19-5.50) 05/20/18 12:39 Hgb 15.6 g/dL (12.9-16.9) 05/20/18 12:39 Hct 43.6 % (37.5-50.1) 05/20/18 12:39 MCV 89.5 fL (83.0-100.0) 05/20/18 12:39 MCH 32.0 pg (28.0-33.3) 05/20/18 12:39 MCHC 35.8 g/dL (31.6-35.5) H 05/20/18 12:39 RDW 12.5 % (11.5-14.5) 05/20/18 12:39 Plt Count 180 K/mcL (140-400) 05/20/18 12:39 MPV 9.4 fL (9.4-12.4) 05/20/18 12:39 Immature Gran % 0.1 % (0-4) 05/20/18 12:39 Seg Neutrophils % 62.5 % 05/20/18 12:39 Lymphocytes % 28.3 % 05/20/18 12:39 Monocytes % 8.5 % 05/20/18 12:39 Eosinophils % 0.0 % 05/20/18 12:39 Basophils % 0.6 % 05/20/18 12:39 Neutrophils # 5.8 K/mcL (1.6-8.9) 05/20/18 12:39 Lymphocytes # 2.6 K/mcL (0.6-4.6) 05/20/18 12:39 Monocytes # 0.8 K/mcL (0.0-1.3) 05/20/18 12:39 Eosinophils # 0.0 K/mcL (0.0-0.6) 05/20/18 12:39 Basophils # 0.1 K/mcL (0.0-0.2) 05/20/18 12:39 Sodium 139 mEq/L (136-145) 05/20/18 12:39 Potassium 3.6 mEq/L (3.5-5.1) 05/20/18 12:39 Chloride 106 mEq/L (98-107) 05/20/18 12:39 Carbon Dioxide 29 mEq/L (23-29) 05/20/18 12:39 BUN 12 mg/dL (6-20) 05/20/18 12:39 Creatinine 1.02 mg/dL (0.70-1.30) 05/20/18 12:39 Est GFR ( Amer) > 60 (> 60) 05/20/18 12:39 Est GFR (Non-Af Amer) > 60 (> 60) 05/20/18 12:39 BUN/Creatinine Ratio 12 (6-26) 05/20/18 12:39 Glucose 83 mg/dL (70-105) 05/20/18 12:39 Calculated Osmolality 287 (280-300) 05/20/18 12:39 Calcium 9.3 mg/dL (8.6-10.3) 05/20/18 12:39 Ur Specimen Adequacy See below A 05/20/18 10:45 Urine Color Dark Yellow (Yellow) 05/20/18 10:45 Urine Clarity Clear (Clear) 05/20/18 10:45 Urine pH 5.5 pH Units (5.0-8.0) 05/20/18 10:45 Ur Specific [place] 1.030 (1.010-1.025) H 05/20/18 10:45 Urine Protein 30 mg/dL (Neg-Trace) H 05/20/18 10:45 Urine Glucose (UA) Normal mg/dL (Normal) 05/20/18 10:45 Urine Ketones Negative mg/dL (Negative) 05/20/18 10:45 Urine Blood Negative (Negative) 05/20/18 10:45 Urine Nitrite Negative (Negative) 05/20/18 10:45 Urine Bilirubin Negative (Negative) 05/20/18 10:45 Urine Urobilinogen Normal mg/dL (Normal) 05/20/18 10:45 Ur Leukocyte Esterase Negative (Negative) 05/20/18 10:45 Urine Microscopic RBC 5-15 per hpf (0-3) H 05/20/18 10:45 Urine Microscopic WBC 0-3 per hpf (0-3) 05/20/18 10:45 Ur Squamous Epith Cells Moderate per lpf (None-Few) H 05/20/18 10:45 Urine Bacteria None Seen per hpf (None-Few) 05/20/18 10:45 Hyaline Casts None Seen per lpf (None-Few) 05/20/18 10:45 Salicylates < 2.5 mg/dL (15.0-30.0) L 05/20/18 12:39 Urine Opiates Screen Positive ng/mL (Jkdxmw=131) H 05/20/18 11:56 Acetaminophen < 10 mcg/mL (10-20) L 05/20/18 12:39 Ur Barbiturates Screen Negative ng/mL (Mpwhqq=315) 05/20/18 11:56 Ur Phencyclidine Scrn Negative ng/mL (Cutoff=25) 05/20/18 11:56 Ur Amphetamines Screen Negative ng/mL (Okjjnu=9843) 05/20/18 11:56 U Benzodiazepines Scrn Negative ng/mL (Mgmerj=870) 05/20/18 11:56 Urine Cocaine Screen Positive ng/mL (Cutoff= 300) H 05/20/18 11:56 U Marijuana (THC) Screen Negative ng/mL (Cutoff = 50) 05/20/18 11:56 Ur Drug Screen Interp See Below 05/20/18 11:56 Ethyl Alcohol < 10 mg/dL (Less than 10) 05/20/18 12:39 Assessment and Plan (1) Patient's noncompliance with other medical treatment and regimen Current visit: No Status: Acute Plan: Admit inpatient for safety and stabilization, Close observation, Suicide Precautions per unit protocol Risks, benefits, side effects, alternatives discussed w/pt: Yes Patient agreeable to treatment: Yes (2) Schizophrenia Current visit: No Status: Acute Plan: Admit inpatient for safety and stabilization, Close observation, Suicide Precautions per unit protocol, Encourage participation in unit milieu, Group Therapy, Monitor sleep Risks, benefits, side effects, alternatives discussed w /pt: Yes Patient agreeable to treatment: Yes Plans for Post Hospital Care: Home Estimated Length of Stay (Days): 5 Qualifiers: Schizophrenia type: paranoid schizophrenia Qualified Code(s): F20.0 - Paranoid schizophrenia (3) Uncomplicated opioid dependence Current visit: No Status: Chronic Plan: Admit inpatient for safety and stabilization, Close observation, Suicide Precautions per unit protocol, Family/Supportive other meeting Risks, benefits , side effects, alternatives discussed w/pt: Yes Patient agreeable to treatment: Yes Plans for Post Hospital Care: Home
[2018-05-21] MEDS: traZODone 50 MG TABLET PO SCH (20:51)
[2018-05-21] MEDS: OLANZapine 5 MG TAB.RAPDIS PO SCH (20:52)
[2018-05-22] MEDS: Nicotine 14 MG PATCH.TD24 TD SCH (07:59)
--- NOTE | 2018-05-22 10:20 | Psychiatry Progress Note ---
Date of Encounter: 05/22/18 Time of Encounter: 10:16 Subjective Interval history: Client states he is feeling better but continues to endorse SI and AH. Does not appear outwardly psychotic. Heavy AOD use. Denies having a drug of choice but states he will use anything. Admits to crack cocaine usage prior to admission and this could have precipitated symptoms of psychosis and depression during the withdrawal period. Client is hoping for a thirty day rehab program. Waiting to meet with new Psychiatrist in June as he just relocated to [place] from [place]. Prescribed Invega and Effexor. Doses just increased yesterday so will give medications time to work. Review of Systems Constitutional: Denies: fever, chills, weakness, weight change Eyes: Denies: eye pain, vision change Ears, Nose, Throat: Denies: ear pain, throat pain, dental pain, hearing loss, congestion Cardiovascular: Denies: chest pain, palpitations, dyspnea on exertion Respiratory: Denies: cough, dyspnea, wheezes Gastrointestinal: Denies: abdominal pain, nausea, vomiting, diarrhea, constipation Musculoskeletal: Denies: joint swelling, joint pain Neurological: Denies: headache, weakness, numbness, memory loss Psychiatric: Reports: suicidal ideation, auditory hallucinations Results - Vital Signs Vital Signs: Temp Pulse Resp BP Pulse Ox 97.9 F 67 16 97/75 99 05/22/18 08:35 05/22/18 08:35 05/22/18 08:35 05/22/18 08:35 05/20/18 20:05 Assessment and Plan (1) Schizophrenia Current visit: No Status: Acute Plan: Continue hospitalization, Close observation, Suicide Precautions per unit protocol, Encourage participation in unit milieu, Group Therapy, Monitor sleep, Monitor appetite Risks, benefits, side effects, alternatives discussed w/pt: Yes Patient agreeable to treatment: Yes Qualifiers: Schizophrenia type: paranoid schizophrenia Qualified Code(s): F20.0 - Paranoid schizophrenia (2) Methamphetamine abuse Current visit: No Status: Acute Plan: Continue hospitalization, Close observation, Suicide Precautions per unit protocol, Encourage participation in unit milieu, Group Therapy, Monitor sleep, Monitor appetite Risks, benefits, side effects, alternatives discussed w/pt: Yes Patient agreeable to treatment: Yes Consult Discharge Plan - Plan Referrals: [facility] [Outside] - 05/30/18 11:00 am (The above appointment is with Elis Virk for mental health counseling. You will also see Velma on at 1300 for psychiatric assessment and medication management. Please bring photo ID and insurance card.) Psychiatry Exam - Constitutional Vitals: Temp Pulse Resp BP Pulse Ox 97.9 F 67 16 97/75 99 05/22/18 08:35 05/22/18 08:35 05/22/18 08:35 05/22/18 08:35 05/20/18 20:05 General appearance: age & developmentally appropriate, well-groomed, well- nourished - Musculoskeletal Gait: normal Station: relaxed Strength & Tone: normal for patient - Psychiatric Patient Orientation: Yes Person, Yes Time, Yes Place Level of alertness: Alert Behavior: calm, cooperative Psychomotor activity: Normal Eye Contact: Minimal Contact Mood Description: Depressed Affect description: congruent with mood Speech Volume: Normal Speech pattern: normal rate, normal rhythm, normal tone, fluent, spontaneous Language & Vocabulary: consistent with education Thought Process: Linear Thought Content: Yes Suicidal ideation, No Homicidal ideation, No Overt delusions Perceptual Disturbances: No Reacting to internal stimuli, Yes Auditory hallucinations, No Visual hallucinations Attention Span Ability: Capable of Focused Attention Memory Description: Grossly Intact Patient Reliability: Questionable Historian Fund of knowledge: Yes abstraction ability, Yes aware of current events Intelligence Estimate: Average Judgment: Limited Insight: Partial
[2018-05-22] MEDS: OLANZapine 5 MG TAB.RAPDIS PO SCH (21:02)
[2018-05-22] MEDS: traZODone 50 MG TABLET PO SCH (21:02)
[2018-05-23] MEDS: Nicotine 14 MG PATCH.TD24 TD SCH (08:50)
--- NOTE | 2018-05-23 10:59 | Psychiatry Progress Note ---
Date of Encounter: 05/23/18 Time of Encounter: 10:30 Subjective Interval history: ID the patient is a 42-year-old white male with schizophrenia. Chief complaint: I would like to wait for the program I think that that would be good. History of present illness. The patient is asking to remain on the unit as a voluntary patient. He signed a voluntary form he would like to participate in the [facility]. This may help with his rehabilitation freedom from drugs and alcohol and his residential resources. The patient is facing 300 days he has been to [facility]. He does not have a diagnosis of antisocial personality disorder. He is able to describe auditory and visual hallucinations that he has experienced. Stuart notes no side effects to the medicine even when asked about jaw pain or jaw stiffness. Patient cannot recall the dose of the medicine but he received an injection in the shoulder Review of Systems Psychiatric: Reports: abnormal sleep pattern, suicidal ideation, auditory hallucinations, visual hallucinations Results - Vital Signs Vital Signs: Temp Pulse Resp BP Pulse Ox 97.4 F L 58 16 114/73 99 05/23/18 09:00 05/23/18 09:00 05/23/18 09:00 05/23/18 09:00 05/20/18 20:05 Assessment and Plan (1) Patient's noncompliance with other medical treatment and regimen Current visit: No Status: Acute Risks, benefits, side effects, alternatives discussed w/pt: Yes Patient agreeable to treatment: Yes (2) Schizophrenia Current visit: No Status: Acute Plan: Continue hospitalization, Close observation, Encourage participation in unit milieu Risks, benefits, side effects, alternatives discussed w/pt: Yes Patient agreeable to treatment: Yes Qualifiers: Schizophrenia type: paranoid schizophrenia Qualified Code(s): F20.0 - Paranoid schizophrenia (3) Uncomplicated opioid dependence Current visit: No Status: Chronic Plan: Continue hospitalization, Close observation, Group Therapy, Monitor sleep , Monitor appetite Risks, benefits, side effects, alternatives discussed w/pt : Yes Patient agreeable to treatment: Yes Consult Discharge Plan - Plan Referrals: [facility] [Outside] - 05/30/18 11:00 am (The above appointment is with Elis Virk for mental health counseling. You will also see Velma on at 1300 for psychiatric assessment and medication management. Please bring photo ID and insurance card.) Psychiatry Exam - Constitutional Vitals: Temp Pulse Resp BP Pulse Ox 97.4 F L 58 16 114/73 99 05/23/18 09:00 05/23/18 09:00 05/23/18 09:00 05/23/18 09:00 05/20/18 20:05 General appearance: age & developmentally appropriate, average - Musculoskeletal Gait: slow Station: other Strength & Tone: normal for patient - Psychiatric Patient Orientation: Yes Person, Yes Time, Yes Place, Yes Circumstance Level of alertness: Alert Behavior: withdrawn Psychomotor activity: Slowed Eye Contact: Maintains Eye Contact Mood Description: Depressed Affect description: blunted Speech Volume: Normal Speech pattern: normal rate Language & Vocabulary: consistent with education Thought Process: Goal Oriented, Slowed Thinking Thought Content: Yes Suicidal ideation Perceptual Disturbances: Yes Auditory hallucinations, Yes Visual hallucinations Attention Span Ability: Capable of Sustained Attention Memory Description: Grossly Intact Patient Reliability: Not Reliable Historian Fund of knowledge: Yes abstraction ability Intelligence Estimate: Average Judgment: Limited Insight: Minimal
[2018-05-23] MEDS: traZODone 50 MG TABLET PO SCH (21:01)
[2018-05-23] MEDS: OLANZapine 5 MG TAB.RAPDIS PO SCH (21:01)
[2018-05-24 08:38] VITALS: BP 108/71
[2018-05-24] MEDS: Nicotine 14 MG PATCH.TD24 TD SCH (08:47)
--- NOTE | 2018-05-24 10:50 | Psychiatry Progress Note ---
Date of Encounter: 05/24/18 Time of Encounter: 10:45 Subjective Interval history: Patient's a 42-year-old white male who is seen for follow-up. Chief complaint I hear voices. I see things but I cannot describe exactly what they are. History of present illness. The patient has remained on the unit he has been free of most suicidal ideation and suicidal intent. The patient is willing to meet with the [facility] clinic to discuss ongoing treatment. He is willing to participate in a program for 30 days he is willing to participate in sobriety he has been on vivitOL injection although he relapsed ON DRUGS OF ABUSE PRIOR TO ADMISSION. 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 The patient's been on inVega 6 mg and he reports some improvement. He hears voices but cannot describe much about what they are. This would equate to 117 mg of inVEGA sUSTENNA Intramuscularly. The patient could benefit from long-acting intramuscular naltrexone and long-acting intramuscular invega SUSTENNA Review of Systems Psychiatric: Reports: abnormal sleep pattern, auditory hallucinations, visual hallucinations Results - Vital Signs Vital Signs: Temp Pulse Resp BP Pulse Ox 98.3 F 79 18 108/71 99 05/24/18 08:37 05/24/18 08:37 05/24/18 08:37 05/24/18 08:37 05/20/18 20:05 Assessment and Plan (1) Patient's noncompliance with other medical treatment and regimen Current visit: No Status: Chronic Plan: Close observation, Encourage participation in unit milieu, Group Therapy, Monitor sleep, Monitor appetite Risks, benefits, side effects, alternatives discussed w/pt: Yes Patient agreeable to treatment: Yes (2) Schizophrenia Current visit: No Status: Acute Plan: Continue hospitalization, Close observation, Encourage participation in unit milieu, Group Therapy, Monitor sleep, Monitor appetite, Secure weapons Risks, benefits, side effects, alternatives discussed w/pt: Yes Patient agreeable to treatment: Yes Qualifiers: Schizophrenia type: paranoid schizophrenia Qualified Code(s): F20.0 - Paranoid schizophrenia (3) Uncomplicated opioid dependence Current visit: No Status: Chronic Plan: Continue hospitalization, Group Therapy, Monitor sleep, Monitor appetite, Secure weapons Risks, benefits, side effects, alternatives discussed w/pt: Yes Patient agreeable to treatment: Yes Consult Discharge Plan - Plan Referrals: [facility] [Outside] - 05/30/18 11:00 am (The above appointment is with Elis Virk for mental health counseling. You will also see Velma on at 1300 for psychiatric assessment and medication management. Please bring photo ID and insurance card.) Psychiatry Exam - Constitutional Vitals: Temp Pulse Resp BP Pulse Ox 98.3 F 79 18 108/71 99 05/24/18 08:37 05/24/18 08:37 05/24/18 08:37 05/24/18 08:37 05/20/18 20:05 General appearance: unkempt, average - Musculoskeletal Gait: normal Station: other Strength & Tone: normal for patient - Psychiatric Patient Orientation: Yes Person, Yes Time, Yes Place, Yes Circumstance Level of alertness: Alert Behavior: cooperative Psychomotor activity: Slowed Eye Contact: Maintains Eye Contact Mood Description: Euthymic/stable Affect description: constricted Speech Volume: Normal Speech pattern: normal rate Language & Vocabulary: consistent with education Thought Process: Intact Perceptual Disturbances: Yes Auditory hallucinations, Yes Visual hallucinations Attention Span Ability: Capable of Sustained Attention Memory Description: Grossly Intact Patient Reliability: Questionable Historian Fund of knowledge: Yes average Intelligence Estimate: Average Judgment: Fair Insight: Partial
--- NOTE | 2018-05-24 11:37 | Discharge Summary ---
Date of Encounter: 05/24/18 Time of Encounter: 11:30 Diagnosis - Discharge Diagnosis (1) Patient's noncompliance with other medical treatment and regimen Status: Chronic (2) Schizophrenia Status: Acute Qualifiers: Schizophrenia type: paranoid schizophrenia Qualified Code(s): F20.0 - Paranoid schizophrenia (3) Uncomplicated opioid dependence Status: Chronic Medications - Discharge Medications Prescriptions: OLANZapine [Zyprexa Zydis] 5 mg PO HS 30 Days #30 tab.rapdis Paliperidone [Invega] 6 mg PO DAILY 30 Days #30 tab.er.24 traZODone [TraZODone] 100 mg PO HS 30 Days #30 tablet Venlafaxine [Effexor] 75 mg PO DAILY 30 Days #30 tablet OLANZapine [Zyprexa Zydis] 5 mg PO HS 30 Days #30 tab.rapdis 05/24/18 [Rx] Paliperidone [Invega] 6 mg PO DAILY 30 Days #30 tab.er.24 05/24/18 [Rx] Venlafaxine [Effexor] 75 mg PO DAILY 30 Days #30 tablet 05/24/18 [Rx] traZODone [TraZODone] 100 mg PO HS 30 Days #30 tablet 05/24/18 [Rx] 3 Allergy/AdvReac Type Severity Reaction Status Date / Time No Known Allergies Allergy Verified 05/20/18 11:46 Provider Date of admission: 05/20/18 15:11 Primary care physician: PCP NONE Discharging clinician: Emmanuel Rudd Psychiatry Exam - Constitutional Vitals: Temp Pulse Resp BP Pulse Ox 98.3 F 79 18 108/71 99 05/24/18 08:37 05/24/18 08:37 05/24/18 08:37 05/24/18 08:37 05/20/18 20:05 General appearance: age & developmentally appropriate, well-nourished, average - Musculoskeletal Gait: normal Station: relaxed Strength & Tone: normal for patient - Psychiatric Patient Orientation: Yes Person, Yes Time, Yes Place Level of alertness: Alert Behavior: calm, cooperative Psychomotor activity: Normal Eye Contact: Maintains Eye Contact Mood Description: Euthymic/stable Affect description: congruent with mood, full range Speech Volume: Normal Speech pattern: normal rate, normal rhythm, normal tone, fluent, spontaneous Language & Vocabulary: consistent with education Thought Process: Linear, Goal Oriented Thought Content: No Suicidal ideation, No Homicidal ideation, No Overt delusions Perceptual Disturbances: Yes Auditory hallucinations, Yes Visual hallucinations Attention Span Ability: Capable of Focused Attention, Capable of Sustained Attention Memory Description: Grossly Intact Fund of knowledge: Yes average Intelligence Estimate: Average Judgment: Limited Insight: Minimal Hospital Course Hospital course: Mr. Stein is a 42 year old male The patient was seen earlier in the day on the day of discharge. He had presented on May 20 suicidal ideation and psychosis. This suicidal ideation improved and the patient acclimated to the milieu. The patient had recent relapse in drug and alcohol. The patient continued to report auditory and visual hallucinations at the time of discharge but did not have not attending to hallucinations or disturbances in his daily activity due to the. The patient was interested in participating in ongoing treatment. He was evaluated by the [facility] and accepted for their program on 05/24/2018. The patient agreed to participate in this program he agreed to abstinence from drugs and alcohol. He agreed to contact his immigration officer. Patient was being maintained on paliperidone 6 mg per day. On an outpatient basis he was on injectable naltrexone.. The patient was on an additional medicines olanzapine to help with hallucinations and sleep. It is hoped that he will be able to taper off this. Time spent discussing smoking cessation with patient: 3 to 10 minutes Does patient wish to continue nicotine replacement upon disc: No - Time Spent with Patient Total time spent providing and/or coordinating discharge services: Greater than 30 minutes Assessment and Plan - Patient/Caregiver Discharge Instructions Activity: resume usual activities as tolerated Diet: regular diet - Follow up Plan Follow up with: [facility] [Outside] - 05/30/18 11:00 am (The above appointment is with Elis Virk for mental health counseling. You will also see Velma on at 1300 for psychiatric assessment and medication management. Please bring photo ID and insurance card.) Overall status at discharge: Stable Disposition: Home, Self-Care Quality - Multiple Antipsychotics Patient discharged on 2 or more antipsychotic medications: Yes - Justification Documentation of: Recommended plan to taper to monotherapy (taper off of olanzapine, Invega sustenna 117 mg IM q 28 days recommended.) Procedures - Procedures Procedures: Medication Management, Crisis Stabilization, Supportive Therapy, Group Therapy, Psychoeducational Therapy
== END 2018-05-24 17:25 | disposition home or self-care (01) | DRG 750 ==
LOC: EMEROO 11:24 → 1ANU 15:11
PROVIDERS: ADMIT Psychiatry & Neurology Forensic Psychiatry; ATTEND Psychiatry & Neurology Forensic Psychiatry